=== PATIENT | male | born 1975 | race Caucasian/White ===

== ENCOUNTER 2020-02-02 12:40 | Outpatient (CLI) | payer BC ==
--- NOTE | 2020-02-02 16:13 | MRI ---
Exam: Cervical spine MRI with and without contrast HISTORY: Numbness from iliac crest down to the feet times many months. Full muscle capacity. Previous cervical fusion Comparison: None FINDINGS: Anterior fusion at C6-C7 with associated metallic susceptibly artifact. Cervical spine vert ebral body heights are maintained. No fracture. No significant STIR hyperintensity to suggest vertebral body edema or ligamentous injury. Appropriate T1 marrow signal intensity of the cervical vertebra. Postcontrast images do not demonstra te any abnormal enhancement of the vertebral bodies Visualized brain parenchyma, cervical medullary junction, cervical cord and the upper thoracic cord a re normal size and signal intensity. Postcontrast images do not demonstrate any abnormal enhancement. Spondylolisthesis: 3.8 mm of retrolisthesis of C6 upon C7 C2-C3: Central disc herniation abuts the thecal sac. Subarachnoid space is maintained. No significant central canal stenosis or significant neural foraminal narrowing C3-C4: Broad-based discussed by complex with a small central disc herniation does efface the midline subarachnoid space. Minimal contact upon the cervical cord without cord signal abnormality. Mild central canal stenosis. Moderate to severe right and mild left neural foraminal narrowing. C4-C5: Central disc herniation deforms the thecal sac. There is mass effect upon the cervical cord, w ithout cord signal abnormality. Postcontrast images demonstrate enhancement of the adjacent dura as well as enhancement along the herniated disc suggesting acute process. Moderate central canal stenosi s. Moderate to severe right and [id number] left neural foraminal narrowing due to uncovertebral hypertrophy C5-C6: Broad-based discussed by complex effaces the subarachnoid space. Moderate central canal stenos is. Moderate to severe bilateral neural foraminal narrowing C6-C7: Broad-based osteophyte ridge without significant central canal stenosis or significant neural foraminal narrowing C7-T1: Broad-based disc bulge abuts the thecal sac. Subarachnoid space is maintained. No significant central canal stenosis. Bilaterally, neural foramina are patent. IMPRESSION: 1. Cervical fusion from C6 through C7 2. No abnormal enhancement with regards to the cervical cord 3. Acute disc herniation at C4-C5. Moderate central canal stenosis. 4. Moderate central canal stenosis at C5-C6 due to degenerative change. 5. Varying degrees of neural foraminal stenosis as detailed above. Transcribed Date/Time: 02/02/2020 4:24 PM
--- NOTE | 2020-02-02 16:13 | MRI ---
MR the lumbar spine with and without contrast INDICATION: History of numbness from the iliac crest down both lower extremities COMPARISON: CT lumbar spine dated January 29, 2020 TECHNIQUE: Multiplanar multisequence MR images were obtained of lumbar spine with and without IV cont rast. Contrast: 19 cc of MultiHance. FINDINGS: Bone marrow: Normal. Distal spinal cord and conus: Normal. Conus is seen to terminate at the L1 level. Visualized retroperitoneum and paraspinal soft tissues: Normal. No lymphadenopathy demonstrated. Vertebral levels: L5-S1: There is mild facet joint degenerative change. There is a left paracentral annular fissure natasha suring 7.5 mm. There is no appreciable central canal or neural foraminal narrowing. L4-5: There is a mild broad-based bulge with mild facet joint degenerative change but no appreciable central canal or neural foraminal narrowing. L3-4: There is a mild broad-based bulge with mild facet joint degenerative change. There are bilatera l pars defects at L3. There is mild neural foraminal narrowing bilaterally. L2-3: No appreciable central canal or neuroforaminal narrowing. L1-L2: No appreciable central canal or neuroforaminal narrowing. T12-L1: There is a left paracentral protrusion without appreciable central canal or neural foraminal narrowing. Postcontrast series: No abnormal enhancement demonstrated. IMPRESSION: 1. Mild spondylosis of the lumbar spine. 2. 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 There is mild bilateral neural foraminal narrowing at L3-4. 3. Left paracentral annular fissure at L5-S1. 4. Left paracentral disc protrusion at T12-L1.
--- NOTE | 2020-02-02 16:21 | MRI ---
Exam: Thoracic spine MRI with and without contrast HISTORY: Numb from the iliac crest down to his feet times months. Previous cervical fusion. FINDINGS: Appropriate T1 marrow signal intensity of the thoracic vertebra. Thoracic spine vertebral body height is maintained. No fracture. No significant STIR hyperintensity to suggest vertebral body edema or ligamentous injury. Postcontrast images do not demonstrate any abnormal enhancement with regards to the vertebral bodies There is appropriate signal intensity of the mediastinum. Dependent atelectatic changes the lung pare nchyma. Appropriate signal intensity of the solid organs. The thoracic cord has a normal size and signal intensity. No cord malacia. No cord expansion. No cord gliosis. Conus medullaris terminates at the L1 level. T7-T8: Small right paracentral disc herniation. Mild deformity the right hemicord, without cord signa l abnormality. T9-T10: Small right paracentral disc herniation. Minimal deformity the right hemicord. Mild central c anal stenosis. No cord signal abnormality. T11-T12: Broad-based disc bulge results in mild central canal stenosis T12-L1 Central/left paracentral and foraminal disc herniation is noted. There is subtle enhancement. Herniation may be acute. There is mild narrowing of the central spinal canal and left neural foramen due to disc material. IMPRESSION: Degenerative changes of the thoracic spine as described above. No cord signal abnormality . Transcribed Date/Time: 02/02/2020 4:27 PM
== END 2020-02-02 12:41 | disposition home or self-care (01) ==
LOC: SCSMRI 12:40
PROVIDERS: ATTEND Nurse Practitioner Acute Care
DX: G95.9 Disease of spinal cord, unspecified (principal); M47.814 Spondylosis without myelopathy or radiculopathy, thoracic region; M50.221 Other cervical disc displacement at C4-C5 level; M47.812 Spondylosis without myelopathy or radiculopathy, cervical region; M48.02 Spinal stenosis, cervical region; M47.816 Spondylosis without myelopathy or radiculopathy, lumbar region; M51.25 Other intervertebral disc displacement, thoracolumbar region; M43.06 Spondylolysis, lumbar region; Z98.1 Arthrodesis status
CPT/HCPCS: 72156; 72157; 72158

== ENCOUNTER 2020-07-04 12:55 | Outpatient (CLI) | payer BC | END 2020-07-04 12:56 | disposition home or self-care (01) | LOC: ULT 12:55 | PROVIDERS: ATTEND Internal Medicine | DX: I63.9 Cerebral infarction, unspecified (principal); I08.1 Rheumatic disorders of both mitral and tricuspid valves | CPT/HCPCS: 93306 ==

== ENCOUNTER 2020-08-23 07:48 | Outpatient (CLI) | payer BC ==
[2020-08-23 09:45] LABS: #Basophils 0.1 10x3/uL (0.0-0.2); #Eosinphils 0.1 10x3/uL (0.0-0.5); #Monocytes 0.7 10x3/uL (0.0-1.1); #Neutrophils 3.6 10x3/uL (1.5-8.4); %Basophils 1.2 % (0.0-2.0); %Eosinophils 2.4 % (0.0-6.0); %Lymphocytes 23.8 % (18.0-47.0); %Monocytes 11.6 % (0.0-10.0); %Neutrophils 60.8 % (40.0-75.0); Mean Corpuscular HGB CONC 33.3 G/DL (32.0-36.0); Mean Corpuscular Hemoglobin 35.9 PG (27.0-33.0); Mean Corpuscular Volume 107.9 fl (80.0-100.0); Mean Platelet Volume 9.6 fl (7.4-10.4); Platelet Count 240 10x3/uL (130-400); RBC Distribution Width 13.4 % (11.5-14.5); White Blood Cell (WBC) Count 5.9 10x3/uL (4.5-11.0)
[2020-08-23 09:58] LABS: Macrocytosis SLIGHT = 6-15 cells (100X) (0-5/hpf)
[2020-08-23 09:59] LABS: Platelet Morphology Comment Appears Adequate; Stomatocytes MODERATE= 6-15 cells (100X) (0-1/hpf)
[2020-08-23 10:02] LABS: Anion Gap 16 mmol/L (10-20); BUN (Urea Nitrogen) 5 mg/dL (8.9-20.6); Calc. Creatinine Clearance 0 mL/min (70-130); Calcium 9.4 mg/dL (7.8-10.44); Carbon Dioxide 24 mmol/L (22-29); Chloride 104 mmol/L (98-107); Glucose 88 mg/dL (70-105); Potassium 4.4 mmol/L (3.5-5.1); Sodium 140 mmol/L (136-145)
[2020-08-24 07:11] LABS: SARS-CoV-2 MS2 Positive; SARS-CoV-2 N Gene Negative; SARS-CoV-2 S Gene Positive; SARS-CoV-2 by NAA DETECTED (NotDetected); SARS-CoV-2 orf1ab Positive
== END 2020-08-23 07:49 | disposition home or self-care (01) ==
LOC: LABBT 07:48
PROVIDERS: ATTEND Internal Medicine Cardiovascular Disease
DX: U07.1 COVID-19 (principal); Z01.818 Encounter for other preprocedural examination; I63.9 Cerebral infarction, unspecified; Q21.1 Atrial septal defect
CPT/HCPCS: 80048; 85025; 87635; U0003

== ENCOUNTER 2020-08-26 06:18 | Day surgery (SDC) | payer BC ==
[2020-08-24 12:32] VITALS: BMI 28.5
[2020-08-26] MEDS ORDERED: PROPOFOL 40 ML ONE (07:21)
[2020-08-26] MEDS ORDERED: PROPOFOL 20 ML ONE (07:59)
[2020-08-26] MEDS ORDERED: Lidocaine 1% PF 5 ML VIAL ONE ×2 (07:59→09:03)
--- NOTE | 2020-08-29 06:48 | DIS ---
DATE OF ADMISSION: 08/26/2020 DATE OF DISCHARGE: 08/26/2020 Date of procedure as an outpatient was 08/26/2020. He was seen in the outpatient facility to undergo a transesophageal echocardiogram with agitated bubble study. PRELIMINARY DIAGNOSIS: Patent foramen ovale, which was noted by a transthoracic echocardiogram in the office using a bubble study. OTHER DIAGNOSIS: Include status post CVA x2. DISCHARGE DIAGNOSIS: No evidence of patent foramen ovale or atrial septal defect or any structural cardiac abnormalities that could be noted by the transesophageal echocardiogram or agitated bubble study. DISCHARGE MEDICATIONS: Will include; 1. Aspirin 160 mg a day. 2. Plavix 75 mg. 3. Protonix 40 mg q.a.m. 4. He also takes bupropion 300 mg q.a.m. I will see him back in the office in the next couple of weeks. 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 He underwent a bubble study in the office, which showed what appeared to be evidence of a patent foramen ovale. He was advised to undergo a transesophageal echocardiogram for better evaluation. He was taken to the recovery area today where he underwent the procedures and after three attempts of agitated saline injections which appeared to be good studies, we did not see any crossover to the left side, even after pressure in the hepatic area and also after the patient had a coughing episode during the ROSA. It is unclear whether or not the patient has some other structural abnormality that cannot be appreciated. We will need to seek further evaluation either by an MRI for further evaluation to determine if this may be some type of connection higher up in the pulmonary system, which was not appreciated on this study. He may need to also undergo if we do not find any structural abnormalities to account for the CVAs. He may need to undergo a LINQ or implantable loop recorder to rule out evidence of some type of intermittent arrhythmias that may have caused this such as atrial fibrillation. Otherwise, the patient did well. He will be ready for discharge. We will continue his present medications at this time. Job ID: [id number]
--- NOTE | 2020-08-30 14:45 | ECHO ---
INDICATION FOR PROCEDURE: 45-year-old patient who is status post CVA x2, was seen in the office, had a transthoracic echocardiogram performed with bubble study. It appeared that the patient had a PFO. He was advised to undergo a transesophageal echocardiogram for better evaluation. He was taken to the recovery area where he underwent short-acting propofol. The transesophageal probe was easily passed down the distal esophagus. We did three attempts at the agitated saline bubble study. IMPRESSIONS: Are as follows: 1. Normal left ventricular systolic function. Ejection fraction was estimated 55-60%. 2. Normal chamber dimensions. 3. No evidence of left atrial or left atrial appendage thrombus. 4. Trivial mitral and tricuspid valve regurgitation. 5. No evidence of a patent foramen ovale or atrial septal defect. The bubble study did not indicate any crossover of the bubbles even with pressure on the hepatic area as well as coughing. There did not appear to be any crossover of bubbles after three attempts. IMPRESSION: Normal echocardiogram with no evidence of patent foramen ovale, atrial septal defect, left atrial appendage thrombus, or any other abnormalities. Job ID: [id number]
== END 2020-08-26 09:16 | disposition home or self-care (01) ==
LOC: CCL 06:18
PROVIDERS: ATTEND Internal Medicine Cardiovascular Disease
PROC: B24BZZ4 Ultrasonography of Heart with Aorta, Transesophageal (ICD-10-PCS; principal; 2020-08-26)
DX: Q21.1 Atrial septal defect (principal); I69.30 Unspecified sequelae of cerebral infarction; F17.290 Nicotine dependence, other tobacco product, uncomplicated; Z79.02 Long term (current) use of antithrombotics/antiplatelets; Z79.82 Long term (current) use of aspirin; Z79.899 Other long term (current) drug therapy; Z88.0 Allergy status to penicillin; Z88.2 Allergy status to sulfonamides; Z98.1 Arthrodesis status
CPT/HCPCS: 93312; J2704

== ENCOUNTER 2021-08-18 16:18 | Inpatient (IN) | payer BC ==
[2021-08-18 17:09] LABS: #Basophils 0.1 thou/uL (0.0-0.2); #Lymphocytes 2.3 thou/uL (1.20-3.40); #Monocytes 0.7 thou/uL (0.11-0.59); #Neutrophils 3.4 thou/uL (1.40-6.50); %Basophils 1.5 % (0.0-1.0); %Eosinophils 0.1 % (0.0-10.0); %Lymphocytes 35.1 % (21.0-51.0); %Monocytes 10.8 % (0.0-10.0); %Neutrophils 52.4 % (42.0-75.0); Hemoglobin 13.9 g/dL (14.0-18.0); Mean Corpuscular HGB CONC 35.2 g/dL (32.0-36.0); Mean Corpuscular Hemoglobin 40.8 pg (27.0-31.0); Mean Platelet Volume 6.3 fL (7.4-10.4); Platelet Count 197 thou/uL (130-400); RBC Distribution Width 17.2 % (11.5-14.5); Red Blood Cell (RBC) Count 3.41 mill/uL (4.70-6.10); White Blood Cell (WBC) Count 6.5 thou/uL (4.8-10.8)
[2021-08-18 17:22] LABS: Anisocytosis SLIGHT = 6-15 cells (100X) (0-5/hpf); MDiff Complete? YES; Macrocytosis SLIGHT = 6-15 cells (100X) (0-5/hpf); Platelet Morphology Comment Appears Adequate
[2021-08-18 17:29] LABS: ALT (SGPT) 78 U/L (8-55); AST (SGOT) 152 U/L (5-34); Acetaminophen Less than 6.0 mcg/mL (10.0-30.0); Albumin 2.8 g/dL (3.5-5.0); Alkaline Phosphatase 216 U/L (40-110); Anion Gap 11 mmol/L (10-20); BUN (Urea Nitrogen) 4 mg/dL (8.9-20.6); Bilirubin, Total 1.8 mg/dL (0.2-1.2); Calc. Creatinine Clearance 0 mL/min (70-130); Calcium 8.3 mg/dL (7.8-10.44); Carbon Dioxide 31 mmol/L (22-29); Chloride 105 mmol/L (98-107); Globulin 3.7 g/dL (2.4-3.5); Glucose 124 mg/dL (70-105); Protein, Total 6.5 g/dL (6.0-8.3); Salicylate Less than 8.0 mg/dL (15.0-30.0); Sodium 144 mmol/L (136-145)
[2021-08-18 17:48] LABS: Alcohol 444 mg/dL (Less than 10)
[2021-08-18] MEDS ORDERED: Thiamine HCl 200 MG/2 ML VIAL SLOW IVP SCH (18:15)
[2021-08-18] MEDS ORDERED: Folic Acid 1 MG, Multivitamins, Adult 10 ML in Dextrose 5 %-0.45 % NaCl 1,000 ML IV SCH (18:30)
[2021-08-18] MEDS ORDERED: Lorazepam 2 MG/ML VIAL ONE (18:40)
[2021-08-18 19:36] LABS: SARS-CoV-2 NAA Rapid Test Not Detected (NotDetected)
[2021-08-18] MEDS ORDERED: Ondansetron ODT 4 MG TAB PO PRN ×2 (20:05→22:35)
[2021-08-18] MEDS ORDERED: Lorazepam 2 MG/ML VIAL SLOW IVP PRN (20:05)
[2021-08-18] MEDS ORDERED: Electrolyte Replacement Protocol 1 EACH FS SCH (20:15)
[2021-08-18 20:35] LABS: Hemoglobin 14.8 g/dL (14.0-18.0); Mean Corpuscular HGB CONC 34.7 g/dL (32.0-36.0); Mean Platelet Volume 6.5 fL (7.4-10.4); Platelet Count 198 thou/uL (130-400); RBC Distribution Width 17.1 % (11.5-14.5); White Blood Cell (WBC) Count 6.1 thou/uL (4.8-10.8)
[2021-08-18] MEDS: Lorazepam 1 MG TAB PO SCH (20:41)
[2021-08-18 20:56] LABS: ALT (SGPT) 79 U/L (8-55); AST (SGOT) 154 U/L (5-34); Albumin 2.9 g/dL (3.5-5.0); Alkaline Phosphatase 223 U/L (40-110); Anion Gap 12 mmol/L (10-20); BUN (Urea Nitrogen) Less than 4 mg/dL (8.9-20.6); Bilirubin, Direct 1.1 mg/dL (0.1-0.3); Bilirubin, Total 1.8 mg/dL (0.2-1.2); Calc. Creatinine Clearance 0 mL/min (70-130); Calcium 7.9 mg/dL (7.8-10.44); Carbon Dioxide 31 mmol/L (22-29); Chloride 103 mmol/L (98-107); Globulin 3.9 g/dL (2.4-3.5); Glucose 124 mg/dL (70-105); Magnesium 1.6 mg/dL (1.6-2.6); Phosphorus 2.7 mg/dL (2.3-4.7); Protein, Total 6.8 g/dL (6.0-8.3); Sodium 143 mmol/L (136-145)
[2021-08-18 21:00] LABS: Band 4 % (5-11); Lymphocytes 15 % (21-51); MDiff Complete? YES; Monocytes 15 % (0-10); Neutrophil 66 % (42-75); Nucleated RBC 1 % (0); Platelet Morphology Comment Appears Adequate; RBC Morphology Normal
[2021-08-18] MEDS ORDERED: Folic Acid 1 MG TAB PO SCH (21:00)
[2021-08-18] MEDS ORDERED: Multivit, Therapeutic 1 TAB PO SCH (21:00)
[2021-08-18] MEDS ORDERED: Potassium Chloride 20 MEQ TAB PO SCH (21:00)
[2021-08-18 21:02] LABS: Potassium 2.9 mmol/L (3.5-5.1)
[2021-08-18] MEDS: Lorazepam 1 MG TAB PO PRN (21:03)
[2021-08-18 22:21] VITALS: BMI 27.4
[2021-08-18 22:24] LABS: Amphetamine Not Detected (NotDetected); Barbiturates Screen Not Detected (NotDetected); Benzodiazepine Screen Not Detected (NotDetected); Cocaine Metabolite Screen Not Detected (NotDetected); Methadone Not Detected (NotDetected); Methamphetamine Not Detected (NotDetected); Opiate Screen Not Detected (NotDetected); Oxycodone Screen Not Detected (NotDetected); Phencyclidine (PCP) Not Detected (NotDetected); THC/Cannabinoid Screen Not Detected (NotDetected); Tricyclic Screen Not Detected (NotDetected)
[2021-08-18] MEDS ORDERED: Senokot S 8.6-50 MG TAB PO PRN (22:35)
[2021-08-18] MEDS ORDERED: Bisacodyl 5 MG TAB PO PRN (22:35)
[2021-08-18] MEDS ORDERED: Calcium Carbonate 500 MG ChewTAB PO PRN (22:35)
[2021-08-18] MEDS ORDERED: hydrALAZINE 20 MG/ML VIAL SLOW IVP PRN (22:40)
[2021-08-19] MEDS: Lorazepam 1 MG TAB PO PRN (00:10)
[2021-08-19] MEDS ORDERED: Potassium Chloride 20 MEQ TAB PO SCH ×4 (01:00→15:00)
[2021-08-19] MEDS ORDERED: Magnesium 2 GM/50 ML 2 GM in Premix Bag 1 BAG IVPB SCH (01:15)
[2021-08-19] MEDS: Sodium Chloride 0.9% 1,000 ML IV SCH ×3 (01:49→16:49)
[2021-08-19] MEDS ORDERED: Potassium Chloride 40 MEQ in Sodium Chloride 0.9% 250 ML 250 ML IVPB SCH (02:30)
[2021-08-19] MEDS: Potassium Chloride 10 MEQ in Premix Bag 1 BAG IVPB SCH ×11 (03:24→15:57)
[2021-08-19] MEDS: Lorazepam 1 MG TAB PO SCH ×4 (03:26→20:13)
[2021-08-19 06:41] LABS: #Lymphocytes 1.6 thou/uL (1.20-3.40); #Monocytes 0.5 thou/uL (0.11-0.59); #Neutrophils 1.4 thou/uL (1.40-6.50); %Basophils 1.1 % (0.0-1.0); %Eosinophils 0.1 % (0.0-10.0); %Lymphocytes 46.2 % (21.0-51.0); %Neutrophils 39.6 % (42.0-75.0); Hemoglobin 12.5 g/dL (14.0-18.0); Mean Corpuscular HGB CONC 35.1 g/dL (32.0-36.0); Mean Corpuscular Hemoglobin 40.7 pg (27.0-31.0); Mean Platelet Volume 6.5 fL (7.4-10.4); Platelet Count 137 thou/uL (130-400); RBC Distribution Width 17.1 % (11.5-14.5); Red Blood Cell (RBC) Count 3.07 mill/uL (4.70-6.10); White Blood Cell (WBC) Count 3.5 thou/uL (4.8-10.8)
[2021-08-19 07:03] LABS: ALT (SGPT) 60 U/L (8-55); AST (SGOT) 114 U/L (5-34); Albumin 2.2 g/dL (3.5-5.0); Alkaline Phosphatase 177 U/L (40-110); Anion Gap 11 mmol/L (10-20); BUN (Urea Nitrogen) Less than 4 mg/dL (8.9-20.6); Bilirubin, Total 1.7 mg/dL (0.2-1.2); Calc. Creatinine Clearance 194 mL/min (70-130); Calcium 7.6 mg/dL (7.8-10.44); Carbon Dioxide 28 mmol/L (22-29); Chloride 104 mmol/L (98-107); Globulin 3.1 g/dL (2.4-3.5); Glucose 77 mg/dL (70-105); Potassium 3.1 mmol/L (3.5-5.1); Protein, Total 5.3 g/dL (6.0-8.3); Sodium 140 mmol/L (136-145)
[2021-08-19 07:23] LABS: HBCM Index 0.08 S/CO (0-0.79); HBSAg Index 0.27 S/CO (0-0.99); Hep A IgM AB Non-Reactive (NonReactive); Hep A IgM S/CO 0.14 S/CO (0-0.79); Hep B Surf Ag Non-Reactive S/CO (NonReactive); Hep C IgG Ab Non-Reactive (NonReactive); Hepatitis B Core IgM Abs Non-Reactive (NonReactive)
[2021-08-19] MEDS ORDERED: Potassium Chloride 20 MEQ in Premix Bag 1 BAG IVPB SCH (08:15)
[2021-08-19] MEDS: Folic Acid 1 MG TAB PO SCH (08:34)
[2021-08-19] MEDS: Multivit, Therapeutic 1 TAB PO SCH (08:35)
[2021-08-19 11:59] LABS: Syphilis Antibody Nonreactive (Nonreactive); Syphilis Antibody Index 0.06 S/CO (<1.00 Non-Reactive)
[2021-08-19 12:07] LABS: Anion Gap 12 mmol/L (10-20); BUN (Urea Nitrogen) Less than 4 mg/dL (8.9-20.6); Calc. Creatinine Clearance 194 mL/min (70-130); Calcium 7.7 mg/dL (7.8-10.44); Carbon Dioxide 26 mmol/L (22-29); Chloride 103 mmol/L (98-107); Glucose 77 mg/dL (70-105); Potassium 3.4 mmol/L (3.5-5.1); Sodium 138 mmol/L (136-145)
[2021-08-19] MEDS ORDERED: Clopidogrel Bisulfate 75 MG TAB PO SCH (15:15)
[2021-08-19 16:06] LABS: Cardiac Risk 3.8 (Less than 4.5)
[2021-08-19] MEDS ORDERED: Lorazepam 1 MG TAB PO PRN (20:06)
[2021-08-19] MEDS ORDERED: Acetaminophen 325 MG TAB PO PRN (20:31)
[2021-08-20] MEDS: Lorazepam 1 MG TAB PO SCH ×4 (03:25→20:51)
[2021-08-20] MEDS: Sodium Chloride 0.9% 1,000 ML IV SCH ×2 (03:26→13:26)
[2021-08-20] MEDS: Clopidogrel Bisulfate 75 MG TAB PO SCH ×2 (09:53→09:57)
[2021-08-20] MEDS: Bupropion 150 MG XL TAB PO SCH (09:56)
[2021-08-20] MEDS: Multivit, Therapeutic 1 TAB PO SCH (10:01)
[2021-08-20] MEDS: Aspirin 81 mg Enteric Coated Tablet PO SCH (10:01)
[2021-08-20] MEDS: Folic Acid 1 MG TAB PO SCH (10:01)
[2021-08-20 11:05] LABS: ALT (SGPT) 66 U/L (8-55); AST (SGOT) 123 U/L (5-34); Albumin 2.8 g/dL (3.5-5.0); Alkaline Phosphatase 234 U/L (40-110); Anion Gap 13 mmol/L (10-20); BUN (Urea Nitrogen) Less than 4 mg/dL (8.9-20.6); Bilirubin, Total 4.4 mg/dL (0.2-1.2); Calc. Creatinine Clearance 171 mL/min (70-130); Calcium 8.6 mg/dL (7.8-10.44); Carbon Dioxide 23 mmol/L (22-29); Chloride 100 mmol/L (98-107); Globulin 3.9 g/dL (2.4-3.5); Glucose 85 mg/dL (70-105); Potassium 4.2 mmol/L (3.5-5.1); Protein, Total 6.7 g/dL (6.0-8.3); Sodium 132 mmol/L (136-145)
[2021-08-20 15:58] LABS: HBCM Index 0.08 S/CO (0-0.79); HBSAg Index 0.28 S/CO (0-0.99); Hep A IgM AB Non-Reactive (NonReactive); Hep A IgM S/CO 0.15 S/CO (0-0.79); Hep B Surf Ag Non-Reactive S/CO (NonReactive); Hep C IgG Ab Non-Reactive (NonReactive); Hep C Index 0.74 S/CO (0-0.79); Hepatitis B Core IgM Abs Non-Reactive (NonReactive)
[2021-08-20] MEDS ORDERED: Thiamine HCl 200 MG/2 ML VIAL SLOW IVP SCH (17:00)
[2021-08-20] MEDS: Folic Acid 1 MG, Multivitamins, Adult 10 ML in Dextrose 5 %-0.45 % NaCl 1,000 ML IV SCH (18:09)
[2021-08-20] MEDS ORDERED: Lorazepam 1 MG TAB PO PRN (20:06)
[2021-08-20] MEDS: Lorazepam 0.5 MG TAB PO SCH (20:52)
[2021-08-21] MEDS: Lorazepam 0.5 MG TAB PO SCH ×4 (03:04→21:00)
[2021-08-21 05:44] LABS: ALT (SGPT) 54 U/L (8-55); AST (SGOT) 86 U/L (5-34); Albumin 2.7 g/dL (3.5-5.0); Alkaline Phosphatase 204 U/L (40-110); Anion Gap 9 mmol/L (10-20); BUN (Urea Nitrogen) Less than 4 mg/dL (8.9-20.6); Bilirubin, Total 3.8 mg/dL (0.2-1.2); Calc. Creatinine Clearance 153 mL/min (70-130); Calcium 8.8 mg/dL (7.8-10.44); Carbon Dioxide 27 mmol/L (22-29); Chloride 99 mmol/L (98-107); Globulin 3.8 g/dL (2.4-3.5); Glucose 98 mg/dL (70-105); Potassium 3.4 mmol/L (3.5-5.1); Protein, Total 6.5 g/dL (6.0-8.3); Sodium 132 mmol/L (136-145)
[2021-08-21] MEDS ORDERED: Potassium Chloride 20 MEQ TAB PO SCH (06:30)
[2021-08-21] MEDS ORDERED: Electrolyte Replacement Protocol 1 EACH FS ONE (08:17)
[2021-08-21] MEDS ORDERED: Electrolyte Replacement Protocol FS PRN (08:30)
[2021-08-21] MEDS: Clopidogrel Bisulfate 75 MG TAB PO SCH (08:54)
[2021-08-21] MEDS: Aspirin 81 mg Enteric Coated Tablet PO SCH (08:54)
[2021-08-21] MEDS: Bupropion 150 MG XL TAB PO SCH (08:54)
[2021-08-21] MEDS ORDERED: FLU VACC QS2021-22(6MOS UP)/PF 60 MCG/0.5 ML SYRINGE IM ONE (09:00)
[2021-08-21] MEDS: Folic Acid 1 MG, Multivitamins, Adult 10 ML in Dextrose 5 %-0.45 % NaCl 1,000 ML IV SCH (17:02)
[2021-08-21] MEDS ORDERED: Lorazepam 0.5 MG TAB PO PRN (20:06)
[2021-08-21] MEDS ORDERED: Thiamine 100 MG TAB PO SCH (21:00)
[2021-08-22] MEDS: Bupropion 150 MG XL TAB PO SCH (08:43)
[2021-08-22] MEDS: Clopidogrel Bisulfate 75 MG TAB PO SCH (08:43)
[2021-08-22] MEDS: Aspirin 81 mg Enteric Coated Tablet PO SCH (08:43)
[2021-08-22 10:06] LABS: ALT (SGPT) 68 U/L (8-55); AST (SGOT) 154 U/L (5-34); Albumin 2.8 g/dL (3.5-5.0); Alkaline Phosphatase 191 U/L (40-110); Anion Gap 11 mmol/L (10-20); BUN (Urea Nitrogen) 4 mg/dL (8.9-20.6); Bilirubin, Total 3.5 mg/dL (0.2-1.2); Calc. Creatinine Clearance 151 mL/min (70-130); Calcium 8.9 mg/dL (7.8-10.44); Carbon Dioxide 23 mmol/L (22-29); Chloride 102 mmol/L (98-107); Globulin 3.7 g/dL (2.4-3.5); Glucose 86 mg/dL (70-105); Magnesium 1.3 mg/dL (1.6-2.6); Phosphorus 3.3 mg/dL (2.3-4.7); Potassium 3.4 mmol/L (3.5-5.1); Protein, Total 6.5 g/dL (6.0-8.3); Sodium 133 mmol/L (136-145)
[2021-08-22 10:12] LABS: INR-International Normal Ratio 1.1; Prothrombin Time 14.2 sec (12.0-14.7)
[2021-08-22] MEDS ORDERED: Potassium Chloride 20 MEQ TAB PO SCH (10:15)
[2021-08-22] MEDS ORDERED: Magnesium Sulfate 4 GM in Sodium Chloride 0.9% 250 ML 250 ML IVPB SCH (10:45)
[2021-08-22 15:43] VITALS: BP 120/90; TEMP 97.3
== END 2021-08-22 15:50 | disposition home or self-care (01) | DRG 917 ==
LOC: ERS 16:18 → T4-A 18:18 → 2NO 08-19 17:12 → T4-A 08-21 18:21
PROVIDERS: ADMIT Internal Medicine; ATTEND Internal Medicine
DX: T51.91XA Toxic effect of unspecified alcohol, accidental (unintentional), initial encounter (principal); G92.8 Other toxic encephalopathy; E87.1 Hypo-osmolality and hyponatremia; Z20.822 Contact with and (suspected) exposure to COVID-19; K70.10 Alcoholic hepatitis without ascites; E87.6 Hypokalemia; F10.129 Alcohol abuse with intoxication, unspecified; F32.A Depression, unspecified; F41.9 Anxiety disorder, unspecified; D64.9 Anemia, unspecified; Y90.8 Blood alcohol level of 240 mg/100 ml or more; E83.42 Hypomagnesemia; Z88.0 Allergy status to penicillin; Z98.1 Arthrodesis status; Z88.2 Allergy status to sulfonamides; Z79.82 Long term (current) use of aspirin; Z79.02 Long term (current) use of antithrombotics/antiplatelets; Z86.73 Personal history of transient ischemic attack (TIA), and cerebral infarction without residual deficits; Z99.3 Dependence on wheelchair
CPT/HCPCS: 36415; 76705; 80053; 80061; 80074; 80306; 80307; 82140; 82248; 83735; 84100; 84443; 85025; 85610; 85730; 86780; 93005; J2060; J3411; J3475; J3480; J7042; J7050; U0002

== ENCOUNTER 2021-10-19 11:25 | Inpatient (IN) | payer BC ==
[2021-10-19 12:18] LABS: Hemoglobin 14.1 g/dL (14.0-18.0); Mean Corpuscular Hemoglobin 42.5 pg (27.0-31.0); Mean Platelet Volume 7.6 fL (7.4-10.4); Platelet Count 285 thou/uL (130-400); RBC Distribution Width 18.5 % (11.5-14.5); Red Blood Cell (RBC) Count 3.31 mill/uL (4.70-6.10); White Blood Cell (WBC) Count 20.2 thou/uL (4.8-10.8)
[2021-10-19 12:26] LABS: INR-International Normal Ratio 1.4; PTT 39.9 sec (22.9-36.1); Prothrombin Time 17.6 sec (12.0-14.7)
[2021-10-19 12:34] LABS: Acetaminophen Less than 6.0 mcg/mL (10.0-30.0); Alcohol Less than 10 mg/dL (Less than 10); Salicylate Less than 8.0 mg/dL (15.0-30.0)
[2021-10-19 12:35] LABS: ALT (SGPT) 117 U/L (8-55); AST (SGOT) 210 U/L (5-34); Albumin 2.4 g/dL (3.5-5.0); Alkaline Phosphatase 345 U/L (40-110); Anion Gap 17 mmol/L (10-20); BUN (Urea Nitrogen) 7 mg/dL (8.9-20.6); Bilirubin, Total 11.1 mg/dL (0.2-1.2); Calc. Creatinine Clearance 0 mL/min (70-130); Carbon Dioxide 27 mmol/L (22-29); Chloride 86 mmol/L (98-107); Globulin 4.9 g/dL (2.4-3.5); Glucose 139 mg/dL (70-105); Lipase 13 U/L (8-78); Protein, Total 7.3 g/dL (6.0-8.3); Sodium 127 mmol/L (136-145)
[2021-10-19 12:39] LABS: Potassium 2.7 mmol/L (3.5-5.1)
[2021-10-19 12:41] LABS: Band 16 % (5-11); Eosinophils 1 % (0-10); Lymphocytes 9 % (21-51); MDiff Complete? YES; Macrocytosis MARKED = >30 cells (100X) (0-5/hpf); Monocytes 3 % (0-10); Neutrophil 71 % (42-75); Nucleated RBC 1 % (0); Platelet Morphology Comment Appears Adequate; Polychromasia MODERATE = 3-4 cells (100X) (0-2/hpf); Reflex for Review?? YES; Stomatocytes MODERATE= 6-15 cells (100X) (0-1/hpf)
[2021-10-19] MEDS ORDERED: Potassium Chloride 20 MEQ TAB ONE (12:41)
[2021-10-19 12:51] LABS: HBSAg Index 0.26 S/CO (0-0.99); Hep B Surf Ag Non-Reactive S/CO (NonReactive)
[2021-10-19] MEDS ORDERED: Potassium Chloride 20 MEQ/100 ML PREMIX BAG ONE (12:52)
[2021-10-19 12:54] LABS: Hep A IgM AB Non-Reactive (NonReactive); Hep A IgM S/CO 0.22 S/CO (0-0.79); Hepatitis B Core IgM Abs Non-Reactive (NonReactive)
[2021-10-19] MEDS ORDERED: cefTRIAXone\\ROCEPHIN 2 GM VIAL ONE (13:06)
[2021-10-19 13:07] LABS: Magnesium 2.1 mg/dL (1.6-2.6)
[2021-10-19] MEDS ORDERED: VANCOMYCIN 2 GRAM/400 ML BAG 2 GM in Premix Bag 1 BAG IVPB SCH (13:15)
[2021-10-19] MEDS ORDERED: Potassium Chloride 20 MEQ TAB PO SCH (14:45)
[2021-10-19 14:49] LABS: Hep C IgG Ab Non-Reactive (NonReactive); Hep C Index 0.52 S/CO (0-0.79)
[2021-10-19 15:24] LABS: Troponin I Less than 0.010 ng/mL (< 0.028)
[2021-10-19] MEDS ORDERED: Ondansetron PF 4 MG/2 ML Vial IVP PRN (15:59)
[2021-10-19] MEDS ORDERED: Vancomycin 1 GM in Premix Bag 1 BAG IVPB SCH (15:59)
[2021-10-19] MEDS ORDERED: Multivitamins, Adult 10 ML, Folic Acid 1 MG in Dextrose 5 %-0.45 % NaCl 1,000 ML IV SCH (15:59)
[2021-10-19] MEDS ORDERED: Thiamine HCl 200 MG/2 ML VIAL SLOW IVP SCH (16:30)
[2021-10-19 18:54] LABS: Troponin I Less than 0.010 ng/mL (< 0.028)
[2021-10-19] MEDS: Simethicone Chewable 80 MG TAB PO PRN (19:11)
[2021-10-19] MEDS: Albumin 25% 25 GM/100 ML BOT IVPB SCH (19:12)
[2021-10-19 20:58] LABS: SARS-CoV-2 PCR by NAA Not Detected (NotDetected)
[2021-10-20] MEDS ORDERED: Vancomycin 1.5 GRAM/300 ML BAG 1.5 GM in Premix Bag 1 BAG IVPB SCH (04:00)
[2021-10-20 05:10] LABS: ALT (SGPT) 81 U/L (8-55); AST (SGOT) 154 U/L (5-34); Alkaline Phosphatase 236 U/L (40-110); Anion Gap 11 mmol/L (10-20); BUN (Urea Nitrogen) 7 mg/dL (8.9-20.6); Bilirubin, Total 9.5 mg/dL (0.2-1.2); Calc. Creatinine Clearance 131 mL/min (70-130); Calcium 7.1 mg/dL (7.8-10.44); Carbon Dioxide 28 mmol/L (22-29); Chloride 90 mmol/L (98-107); Globulin 3.3 g/dL (2.4-3.5); Glucose 116 mg/dL (70-105); Potassium 2.8 mmol/L (3.5-5.1); Protein, Total 5.3 g/dL (6.0-8.3); Sodium 126 mmol/L (136-145)
[2021-10-20] MEDS ORDERED: Electrolyte Replacement Protocol 1 EACH FS PRN (05:45)
[2021-10-20] MEDS: Potassium Chloride 40 MEQ in Sodium Chloride 0.9% 250 ML 250 ML IVPB SCH ×4 (06:08→23:16)
[2021-10-20 06:36] LABS: #Lymphocytes 2.3 thou/uL (1.20-3.40); #Monocytes 2.1 thou/uL (0.11-0.59); #Neutrophils 11.2 thou/uL (1.40-6.50); %Basophils 0.3 % (0.0-1.0); %Eosinophils 0.1 % (0.0-10.0); %Lymphocytes 14.4 % (21.0-51.0); %Monocytes 13.5 % (0.0-10.0); %Neutrophils 71.8 % (42.0-75.0); Hemoglobin 10.8 g/dL (14.0-18.0); Mean Corpuscular HGB CONC 32.4 g/dL (32.0-36.0); Mean Corpuscular Hemoglobin 41.6 pg (27.0-31.0); Mean Platelet Volume 7.2 fL (7.4-10.4); Platelet Count 220 thou/uL (130-400); RBC Distribution Width 18.6 % (11.5-14.5); White Blood Cell (WBC) Count 15.7 thou/uL (4.8-10.8)
[2021-10-20 06:45] LABS: Magnesium 1.9 mg/dL (1.6-2.6)
[2021-10-20] MEDS ORDERED: Magnesium 2 GM/50 ML(in water) 2 GM in Premix Bag 1 BAG IVPB SCH (08:00)
[2021-10-20] MEDS: Thiamine 100 MG TAB PO SCH ×2 (11:14→11:16)
[2021-10-20] MEDS: Multivit, Therapeutic 1 TAB PO SCH (11:15)
[2021-10-20] MEDS: Enoxaparin Sodium 40 MG/0.4 ML SYRINGE SC SCH (11:15)
[2021-10-20] MEDS: Aspirin 81 mg Enteric Coated Tablet PO SCH (11:16)
[2021-10-20] MEDS: Folic Acid 1 MG TAB PO SCH (11:16)
[2021-10-20] MEDS ORDERED: Polyethylene Glycol 3350 17 GM Packet PO SCH (14:15)
[2021-10-20 15:22] LABS: Vancomycin, Trough 25.6 ug/mL
[2021-10-20 15:25] LABS: Bilirubin, Direct 8.2 mg/dL (0.1-0.3); Bilirubin, Total 11.4 mg/dL (0.2-1.2)
[2021-10-20] MEDS: Albumin 25% 25 GM/100 ML BOT IVPB SCH (17:20)
[2021-10-20] MEDS: cefTRIAXone\\ROCEPHIN 1 GM in Sodium Chloride 0.9% 100 ML IVPB SCH (18:54)
[2021-10-20] MEDS ORDERED: Albumin 25% 25 GM/100 ML BOT IVPB SCH (19:30)
[2021-10-20 20:38] LABS: RBC Count-Automated (BF) 119 /cu.mm; WBC/Nucleated-Auto (BF) 43 /cu.mm
[2021-10-20 20:43] LABS: BF Color Yellow; Body Fluid Source Ascites Body Fluid; Clarity Clear (Clear); Tube # EDTA
[2021-10-20 20:54] LABS: Cell Count Non Hematic 90 %; Lymphocytes 10 %
[2021-10-21] MEDS: Vancomycin 1 GM in Premix Bag 1 BAG IVPB SCH ×2 (03:11→17:02)
[2021-10-21] MEDS: Potassium Chloride 40 MEQ in Sodium Chloride 0.9% 250 ML 250 ML IVPB SCH ×2 (04:15→05:15)
[2021-10-21 05:00] LABS: ALT (SGPT) 76 U/L (8-55); AST (SGOT) 144 U/L (5-34); Albumin 2.7 g/dL (3.5-5.0); Alkaline Phosphatase 201 U/L (40-110); Anion Gap 12 mmol/L (10-20); BUN (Urea Nitrogen) 6 mg/dL (8.9-20.6); Bilirubin, Total 11.4 mg/dL (0.2-1.2); Calc. Creatinine Clearance 152 mL/min (70-130); Calcium 7.5 mg/dL (7.8-10.44); Carbon Dioxide 26 mmol/L (22-29); Chloride 92 mmol/L (98-107); Globulin 3.1 g/dL (2.4-3.5); Glucose 86 mg/dL (70-105); Magnesium 2.2 mg/dL (1.6-2.6); Potassium 4.6 mmol/L (3.5-5.1); Protein, Total 5.8 g/dL (6.0-8.3); Sodium 125 mmol/L (136-145)
[2021-10-21 05:42] LABS: #Basophils 0.1 thou/uL (0.0-0.2); #Lymphocytes 1.6 thou/uL (1.20-3.40); #Monocytes 1.9 thou/uL (0.11-0.59); %Basophils 0.3 % (0.0-1.0); %Lymphocytes 11.2 % (21.0-51.0); %Monocytes 13.1 % (0.0-10.0); %Neutrophils 75.3 % (42.0-75.0); Anisocytosis SLIGHT = 6-15 cells (100X) (0-5/hpf); Hemoglobin 10.8 g/dL (14.0-18.0); MDiff Complete? YES; Macrocytosis MARKED = >30 cells (100X) (0-5/hpf); Mean Corpuscular HGB CONC 31.8 g/dL (32.0-36.0); Mean Corpuscular Hemoglobin 41.6 pg (27.0-31.0); Mean Platelet Volume 7.5 fL (7.4-10.4); Platelet Count 192 thou/uL (130-400); Target Cells SLIGHT = 2-5 cells (100X) (0-1/hpf); White Blood Cell (WBC) Count 14.7 thou/uL (4.8-10.8)
[2021-10-21 08:25] LABS: Anion Gap 12 mmol/L (10-20); BUN (Urea Nitrogen) 6 mg/dL (8.9-20.6); Calc. Creatinine Clearance 150 mL/min (70-130); Calcium 7.7 mg/dL (7.8-10.44); Carbon Dioxide 26 mmol/L (22-29); Chloride 93 mmol/L (98-107); Glucose 85 mg/dL (70-105); Potassium 4.7 mmol/L (3.5-5.1); Sodium 126 mmol/L (136-145)
[2021-10-21] MEDS: Aspirin 81 mg Enteric Coated Tablet PO SCH (10:33)
[2021-10-21] MEDS: Thiamine 100 MG TAB PO SCH (10:34)
[2021-10-21] MEDS: Folic Acid 1 MG TAB PO SCH (10:34)
[2021-10-21] MEDS: Enoxaparin Sodium 40 MG/0.4 ML SYRINGE SC SCH (10:34)
[2021-10-21] MEDS: Multivit, Therapeutic 1 TAB PO SCH (10:34)
[2021-10-21] MEDS: Polyethylene Glycol 3350 17 GM Packet PO SCH (10:35)
[2021-10-21] MEDS: cefTRIAXone\\ROCEPHIN 1 GM in Sodium Chloride 0.9% 100 ML IVPB SCH (13:51)
[2021-10-21 17:36] LABS: Bacteria/HPF 4+ HPF (None Seen); Bilirubin 2+ (Negative); Blood, Urine 3+ (Negative); Clarity Extra Turbid (Clear); Glucose, Urine (Dipstick) Normal (Negative); Ketone, Urine Negative (Negative); Leukocyte Negative Leu/uL (Negative); Nitrite Negative (Negative); Protein, Urine (Dipstick) 70 mg/dL (Neg-Trace); Specific Gravity, Urine 1.034 (1.002-1.036); Squamous Epithelial None Seen HPF (0-3); Urobilinogen Normal mg/dL (Less than 2); WBC/HPF None Seen HPF (0-3); pH, Urine 5.5 (5.0-9.0)
[2021-10-21] MEDS: Albumin 25% 25 GM/100 ML BOT IVPB SCH (20:59)
[2021-10-22 05:23] LABS: ALT (SGPT) 75 U/L (8-55); AST (SGOT) 146 U/L (5-34); Alkaline Phosphatase 216 U/L (40-110); Anion Gap 13 mmol/L (10-20); BUN (Urea Nitrogen) 6 mg/dL (8.9-20.6); Bilirubin, Total 14.4 mg/dL (0.2-1.2); Calc. Creatinine Clearance 141 mL/min (70-130); Calcium 7.7 mg/dL (7.8-10.44); Carbon Dioxide 25 mmol/L (22-29); Chloride 92 mmol/L (98-107); Globulin 2.9 g/dL (2.4-3.5); Glucose 83 mg/dL (70-105); Magnesium 2.2 mg/dL (1.6-2.6); Potassium 4.4 mmol/L (3.5-5.1); Protein, Total 5.9 g/dL (6.0-8.3); Sodium 126 mmol/L (136-145)
[2021-10-22] MEDS: Vancomycin 1 GM in Premix Bag 1 BAG IVPB SCH (05:30)
[2021-10-22 05:53] LABS: Band 13 % (5-11); Lymphocytes 17 % (21-51); MDiff Complete? YES; Monocytes 8 % (0-10); Neutrophil 62 % (42-75)
[2021-10-22 05:54] LABS: Hemoglobin 11.3 g/dL (14.0-18.0); Mean Corpuscular HGB CONC 32.5 g/dL (32.0-36.0); Mean Corpuscular Hemoglobin 41.9 pg (27.0-31.0); Mean Platelet Volume 7.1 fL (7.4-10.4); Platelet Count 217 thou/uL (130-400); RBC Distribution Width 17.6 % (11.5-14.5); Red Blood Cell (RBC) Count 2.69 mill/uL (4.70-6.10); White Blood Cell (WBC) Count 17.4 thou/uL (4.8-10.8)
[2021-10-22] MEDS ORDERED: Furosemide 40 MG TAB PO SCH (07:30)
[2021-10-22] MEDS ORDERED: Spironolactone 100 MG TAB PO SCH (08:00)
[2021-10-22] MEDS: Polyethylene Glycol 3350 17 GM Packet PO SCH (09:18)
[2021-10-22] MEDS: Thiamine 100 MG TAB PO SCH (09:23)
[2021-10-22] MEDS: Folic Acid 1 MG TAB PO SCH (09:23)
[2021-10-22] MEDS: Multivit, Therapeutic 1 TAB PO SCH (09:23)
[2021-10-22] MEDS: Albumin 25% 25 GM/100 ML BOT IVPB SCH ×2 (09:23→20:46)
[2021-10-22] MEDS: Aspirin 81 mg Enteric Coated Tablet PO SCH (09:23)
[2021-10-22] MEDS: Enoxaparin Sodium 40 MG/0.4 ML SYRINGE SC SCH (09:23)
[2021-10-22 11:10] LABS: INR-International Normal Ratio 1.9; Prothrombin Time 21.8 sec (12.0-14.7)
[2021-10-22] MEDS: cefTRIAXone\\ROCEPHIN 1 GM in Sodium Chloride 0.9% 100 ML IVPB SCH (12:39)
[2021-10-22] MEDS ORDERED: Furosemide 40 MG/4 ML VIAL SLOW IVP SCH (15:00)
[2021-10-22 19:20] LABS: ANA Symphony (Qualitative) Equivocal: See Note (Negative); CENP IgG Antibody 1.4 EliAU/mL (<7 Negative); EliA Vaculitis New Method **** NEW METHOD ****; Jo-1 IgG Antibody 0.6 EliAU/mL (<7 Negative); Mitochondrial Ab 5.1 U/mL (<4 Negative); RNP70 IgG Antibody 0.9 EliAU/mL (<7 Negative); SSA/Ro IgG Antibody 1.4 EliAU/mL (<7 Negative); SSB/La IgG Antibody 0.9 EliAU/mL (<7 Negative); Scleroderma-70 IgG Antibody 2.3 EliAU/mL (<7 Negative); dsDNA IgG Antibody 2.4 IU/mL (<10 Negative)
[2021-10-22] MEDS: Simethicone Chewable 80 MG TAB PO PRN (21:41)
[2021-10-22] MEDS: ALPRAZolam 0.25 MG TAB PO PRN (21:41)
[2021-10-23] MEDS: Furosemide 40 MG/4 ML VIAL SLOW IVP SCH ×2 (05:46→13:47)
[2021-10-23 06:42] LABS: #Monocytes 2.1 thou/uL (0.11-0.59); #Neutrophils 13.9 thou/uL (1.40-6.50); %Basophils 0.2 % (0.0-1.0); %Eosinophils 0.1 % (0.0-10.0); %Lymphocytes 10.9 % (21.0-51.0); %Monocytes 11.6 % (0.0-10.0); %Neutrophils 77.2 % (42.0-75.0); Hemoglobin 11.8 g/dL (14.0-18.0); Mean Corpuscular HGB CONC 33.9 g/dL (32.0-36.0); Mean Corpuscular Hemoglobin 43.6 pg (27.0-31.0); Mean Platelet Volume 7.5 fL (7.4-10.4); Platelet Count 208 thou/uL (130-400); RBC Distribution Width 17.2 % (11.5-14.5)
[2021-10-23 06:54] LABS: INR-International Normal Ratio 1.7
[2021-10-23 07:03] LABS: ALT (SGPT) 64 U/L (8-55); AST (SGOT) 138 U/L (5-34); Albumin 3.2 g/dL (3.5-5.0); Alkaline Phosphatase 182 U/L (40-110); Anion Gap 14 mmol/L (10-20); BUN (Urea Nitrogen) 7 mg/dL (8.9-20.6); Bilirubin, Total 16.1 mg/dL (0.2-1.2); Calc. Creatinine Clearance 151 mL/min (70-130); Calcium 7.9 mg/dL (7.8-10.44); Carbon Dioxide 25 mmol/L (22-29); Chloride 90 mmol/L (98-107); Globulin 2.8 g/dL (2.4-3.5); Glucose 85 mg/dL (70-105); Magnesium 2.1 mg/dL (1.6-2.6); Potassium 3.4 mmol/L (3.5-5.1); Sodium 126 mmol/L (136-145)
[2021-10-23] MEDS ORDERED: Potassium Chloride 20 MEQ TAB PO SCH (08:00)
[2021-10-23] MEDS: Aspirin 81 mg Enteric Coated Tablet PO SCH (08:41)
[2021-10-23] MEDS: Folic Acid 1 MG TAB PO SCH (08:42)
[2021-10-23] MEDS: Polyethylene Glycol 3350 17 GM Packet PO SCH ×2 (08:42→18:22)
[2021-10-23] MEDS: Multivit, Therapeutic 1 TAB PO SCH (08:42)
[2021-10-23] MEDS: Thiamine 100 MG TAB PO SCH (08:42)
[2021-10-23] MEDS: Enoxaparin Sodium 40 MG/0.4 ML SYRINGE SC SCH ×2 (08:46→11:59)
[2021-10-23] MEDS ORDERED: Albumin 25% 25 GM/100 ML BOT IVPB SCH (09:30)
[2021-10-23] MEDS: Pantoprazole 40 MG VIAL IVP SCH (09:43)
[2021-10-23] MEDS: Albumin 25% 25 GM/100 ML BOT IVPB SCH ×3 (09:43→22:13)
[2021-10-23 18:36] LABS: Bilirubin 1+ (Negative); Blood, Urine Negative (Negative); Clarity Clear (Clear); Glucose, Urine (Dipstick) Normal (Negative); Ketone, Urine Negative (Negative); Leukocyte Negative Leu/uL (Negative); Nitrite Negative (Negative); Protein, Urine (Dipstick) Negative (Neg-Trace); RBC/HPF None Seen HPF (0-3); Squamous Epithelial 0-3 HPF (0-3); Urobilinogen Normal mg/dL (Less than 2); WBC/HPF 0-3 HPF (0-3)
[2021-10-23 18:37] LABS: Bacteria/HPF 1+ HPF (None Seen)
[2021-10-23 18:38] LABS: Urine Culture Reflex Yes Yes
[2021-10-23] MEDS: traMADol HCl 50 MG TAB PO SCH (22:18)
[2021-10-24] MEDS: Albumin 25% 25 GM/100 ML BOT IVPB SCH ×3 (05:22→17:16)
[2021-10-24] MEDS: Furosemide 40 MG/4 ML VIAL SLOW IVP SCH ×2 (05:22→15:47)
[2021-10-24] MEDS: traMADol HCl 50 MG TAB PO SCH (05:25)
[2021-10-24 06:34] LABS: #Lymphocytes 1.6 thou/uL (1.20-3.40); #Monocytes 1.8 thou/uL (0.11-0.59); #Neutrophils 12.9 thou/uL (1.40-6.50); %Basophils 0.2 % (0.0-1.0); %Eosinophils 0.1 % (0.0-10.0); %Lymphocytes 9.9 % (21.0-51.0); %Monocytes 10.8 % (0.0-10.0); Hemoglobin 10.4 g/dL (14.0-18.0); Mean Corpuscular HGB CONC 31.9 g/dL (32.0-36.0); Mean Corpuscular Hemoglobin 40.7 pg (27.0-31.0); Platelet Count 213 thou/uL (130-400); RBC Distribution Width 16.8 % (11.5-14.5); Red Blood Cell (RBC) Count 2.57 mill/uL (4.70-6.10); White Blood Cell (WBC) Count 16.4 thou/uL (4.8-10.8)
[2021-10-24 06:47] LABS: INR-International Normal Ratio 1.7; Prothrombin Time 19.9 sec (12.0-14.7)
[2021-10-24 06:57] LABS: ALT (SGPT) 55 U/L (8-55); AST (SGOT) 130 U/L (5-34); Albumin 3.9 g/dL (3.5-5.0); Alkaline Phosphatase 149 U/L (40-110); Anion Gap 16 mmol/L (10-20); BUN (Urea Nitrogen) 7 mg/dL (8.9-20.6); Bilirubin, Total 16.3 mg/dL (0.2-1.2); Calc. Creatinine Clearance 135 mL/min (70-130); Calcium 8.2 mg/dL (7.8-10.44); Carbon Dioxide 25 mmol/L (22-29); Chloride 90 mmol/L (98-107); Globulin 2.3 g/dL (2.4-3.5); Glucose 89 mg/dL (70-105); Potassium 3.5 mmol/L (3.5-5.1); Protein, Total 6.2 g/dL (6.0-8.3); Sodium 127 mmol/L (136-145)
[2021-10-24] MEDS ORDERED: Potassium Chloride 20 MEQ TAB PO SCH (08:00)
[2021-10-24] MEDS: Aspirin 81 mg Enteric Coated Tablet PO SCH (08:36)
[2021-10-24] MEDS: Folic Acid 1 MG TAB PO SCH (08:36)
[2021-10-24] MEDS: Multivit, Therapeutic 1 TAB PO SCH (08:36)
[2021-10-24] MEDS: Pantoprazole 40 MG VIAL IVP SCH (08:36)
[2021-10-24] MEDS: Thiamine 100 MG TAB PO SCH (08:36)
[2021-10-24] MEDS: Enoxaparin Sodium 40 MG/0.4 ML SYRINGE SC SCH (08:37)
[2021-10-24] MEDS: Polyethylene Glycol 3350 17 GM Packet PO SCH ×2 (08:37→09:42)
[2021-10-24] MEDS ORDERED: Furosemide 40 MG/4 ML VIAL SLOW IVP SCH (09:15)
[2021-10-24] MEDS ORDERED: Lidocaine 1% PF 5 ML VIAL ONE (13:59)
[2021-10-24] MEDS ORDERED: Sodium Bicarbonate 2.5 MEQ/5 ML VIAL ONE (13:59)
[2021-10-24] MEDS: traMADol HCl 50 MG TAB PO PRN (17:20)
[2021-10-25] MEDS: Albumin 25% 25 GM/100 ML BOT IVPB SCH ×4 (00:25→17:55)
[2021-10-25] MEDS: Furosemide 40 MG/4 ML VIAL SLOW IVP SCH ×2 (06:04→13:27)
[2021-10-25 07:09] LABS: Hemoglobin 10.6 g/dL (14.0-18.0); Mean Corpuscular HGB CONC 32.1 g/dL (32.0-36.0); Mean Corpuscular Hemoglobin 40.9 pg (27.0-31.0); Mean Platelet Volume 7.1 fL (7.4-10.4); Platelet Count 210 thou/uL (130-400); RBC Distribution Width 16.8 % (11.5-14.5); White Blood Cell (WBC) Count 16.3 thou/uL (4.8-10.8)
[2021-10-25 07:12] LABS: INR-International Normal Ratio 1.7; Prothrombin Time 20.3 sec (12.0-14.7)
[2021-10-25 07:22] LABS: ALT (SGPT) 51 U/L (8-55); AST (SGOT) 142 U/L (5-34); Albumin 3.8 g/dL (3.5-5.0); Alkaline Phosphatase 131 U/L (40-110); Anion Gap 16 mmol/L (10-20); BUN (Urea Nitrogen) 7 mg/dL (8.9-20.6); Bilirubin, Total 16.4 mg/dL (0.2-1.2); Calc. Creatinine Clearance 147 mL/min (70-130); Calcium 8.3 mg/dL (7.8-10.44); Carbon Dioxide 27 mmol/L (22-29); Chloride 89 mmol/L (98-107); Glucose 83 mg/dL (70-105); Potassium 3.7 mmol/L (3.5-5.1); Protein, Total 5.8 g/dL (6.0-8.3); Sodium 128 mmol/L (136-145)
[2021-10-25 08:22] LABS: Band 20 % (5-11); Lymphocytes 16 % (21-51); MDiff Complete? YES; Macrocytosis MARKED = >30 cells (100X) (0-5/hpf); Monocytes 5 % (0-10); Neutrophil 59 % (42-75); Platelet Morphology Comment Appears Adequate; Polychromasia MODERATE = 3-4 cells (100X) (0-2/hpf); Stomatocytes SLIGHT = 2-5 cells (100X) (0-1/hpf)
[2021-10-25] MEDS: Folic Acid 1 MG TAB PO SCH (09:02)
[2021-10-25] MEDS: Aspirin 81 mg Enteric Coated Tablet PO SCH (09:02)
[2021-10-25] MEDS: Enoxaparin Sodium 40 MG/0.4 ML SYRINGE SC SCH (09:02)
[2021-10-25] MEDS: Multivit, Therapeutic 1 TAB PO SCH (09:02)
[2021-10-25] MEDS: Thiamine 100 MG TAB PO SCH (09:02)
[2021-10-25] MEDS: Pantoprazole 40 MG VIAL IVP SCH (09:03)
[2021-10-25] MEDS: Polyethylene Glycol 3350 17 GM Packet PO SCH (09:03)
[2021-10-25] MEDS: traMADol HCl 50 MG TAB PO PRN (21:53)
[2021-10-26] MEDS: Albumin 25% 25 GM/100 ML BOT IVPB SCH ×2 (01:17→05:41)
[2021-10-26] MEDS: Furosemide 40 MG/4 ML VIAL SLOW IVP SCH (05:41)
[2021-10-26 06:34] LABS: #Lymphocytes 1.7 thou/uL (1.20-3.40); #Monocytes 1.3 thou/uL (0.11-0.59); #Neutrophils 12.1 thou/uL (1.40-6.50); %Basophils 0.2 % (0.0-1.0); %Eosinophils 0.1 % (0.0-10.0); %Lymphocytes 11.2 % (21.0-51.0); %Monocytes 8.7 % (0.0-10.0); %Neutrophils 79.9 % (42.0-75.0); Hemoglobin 10.7 g/dL (14.0-18.0); Mean Corpuscular HGB CONC 32.3 g/dL (32.0-36.0); Mean Platelet Volume 6.9 fL (7.4-10.4); Platelet Count 197 thou/uL (130-400); RBC Distribution Width 16.4 % (11.5-14.5); Red Blood Cell (RBC) Count 2.62 mill/uL (4.70-6.10); White Blood Cell (WBC) Count 15.1 thou/uL (4.8-10.8)
[2021-10-26 06:47] LABS: Anion Gap 16 mmol/L (10-20); BUN (Urea Nitrogen) 7 mg/dL (8.9-20.6); Calc. Creatinine Clearance 141 mL/min (70-130); Calcium 8.4 mg/dL (7.8-10.44); Carbon Dioxide 28 mmol/L (22-29); Chloride 87 mmol/L (98-107); Glucose 93 mg/dL (70-105); Potassium 3.2 mmol/L (3.5-5.1); Sodium 128 mmol/L (136-145)
[2021-10-26] MEDS ORDERED: Potassium Chloride 20 MEQ TAB PO SCH ×2 (08:00→08:15)
[2021-10-26 09:19] LABS: Protein, Total 5.8 g/dL (6.0-8.3)
[2021-10-26 09:20] LABS: Bilirubin, Total 17.5 mg/dL (0.2-1.2)
[2021-10-26 09:21] LABS: Alkaline Phosphatase 113 U/L (40-110)
[2021-10-26] MEDS: Folic Acid 1 MG TAB PO SCH (09:22)
[2021-10-26] MEDS: Polyethylene Glycol 3350 17 GM Packet PO SCH (09:22)
[2021-10-26] MEDS: Thiamine 100 MG TAB PO SCH (09:22)
[2021-10-26] MEDS: Multivit, Therapeutic 1 TAB PO SCH (09:22)
[2021-10-26] MEDS: Aspirin 81 mg Enteric Coated Tablet PO SCH (09:22)
[2021-10-26] MEDS: Enoxaparin Sodium 40 MG/0.4 ML SYRINGE SC SCH (09:22)
[2021-10-26 09:23] LABS: AST (SGOT) 141 U/L (5-34)
[2021-10-26 09:24] LABS: ALT (SGPT) 49 U/L (8-55)
[2021-10-26 10:06] LABS: Bilirubin, Direct 10.8 mg/dL (0.1-0.3)
[2021-10-26 12:35] LABS: SARS-CoV-2 PCR by NAA Not Detected (NotDetected)
[2021-10-26] MEDS: Furosemide 40 MG TAB PO SCH (14:01)
[2021-10-27 06:04] LABS: ALT (SGPT) 58 U/L (8-55); AST (SGOT) 177 U/L (5-34); Albumin 3.9 g/dL (3.5-5.0); Alkaline Phosphatase 128 U/L (40-110); Anion Gap 14 mmol/L (10-20); BUN (Urea Nitrogen) 8 mg/dL (8.9-20.6); Bilirubin, Total 20.4 mg/dL (0.2-1.2); Calc. Creatinine Clearance 117 mL/min (70-130); Calcium 9.1 mg/dL (7.8-10.44); Carbon Dioxide 29 mmol/L (22-29); Chloride 89 mmol/L (98-107); Globulin 2.1 g/dL (2.4-3.5); Glucose 123 mg/dL (70-105); Potassium 3.7 mmol/L (3.5-5.1); Sodium 128 mmol/L (136-145)
[2021-10-27] MEDS: Spironolactone 25 MG TAB PO SCH (08:54)
[2021-10-27] MEDS: Furosemide 40 MG TAB PO SCH ×2 (08:54→13:35)
[2021-10-27] MEDS: Enoxaparin Sodium 40 MG/0.4 ML SYRINGE SC SCH (08:54)
[2021-10-27] MEDS: Polyethylene Glycol 3350 17 GM Packet PO SCH (08:54)
[2021-10-27] MEDS: Aspirin 81 mg Enteric Coated Tablet PO SCH (08:54)
[2021-10-27] MEDS: Folic Acid 1 MG TAB PO SCH (08:54)
[2021-10-27] MEDS: Multivit, Therapeutic 1 TAB PO SCH (08:54)
[2021-10-27] MEDS: Thiamine 100 MG TAB PO SCH (08:54)
[2021-10-27 10:46] LABS: INR-International Normal Ratio 1.9; Prothrombin Time 22.5 sec (12.0-14.7)
[2021-10-28] MEDS: Simethicone Chewable 80 MG TAB PO PRN ×2 (02:59→22:42)
[2021-10-28] MEDS: Bisacodyl 5 MG TAB PO PRN (06:00)
[2021-10-28 06:07] LABS: Anion Gap 14 mmol/L (10-20); BUN (Urea Nitrogen) 13 mg/dL (8.9-20.6); Calc. Creatinine Clearance 104 mL/min (70-130); Calcium 8.6 mg/dL (7.8-10.44); Carbon Dioxide 28 mmol/L (22-29); Chloride 89 mmol/L (98-107); Glucose 98 mg/dL (70-105); Potassium 3.8 mmol/L (3.5-5.1); Sodium 127 mmol/L (136-145)
[2021-10-28 06:09] LABS: Hemoglobin 11.4 g/dL (14.0-18.0); Mean Corpuscular HGB CONC 31.9 g/dL (32.0-36.0); Mean Corpuscular Hemoglobin 39.9 pg (27.0-31.0); Platelet Count 185 thou/uL (130-400); RBC Distribution Width 16.5 % (11.5-14.5); Red Blood Cell (RBC) Count 2.85 mill/uL (4.70-6.10); White Blood Cell (WBC) Count 19.8 thou/uL (4.8-10.8)
[2021-10-28 06:10] LABS: Anisocytosis SLIGHT = 6-15 cells (100X) (0-5/hpf); Band 4 % (5-11); Hypochromia SLIGHT = 6-15 cells (100X) (0-5/hpf); Lymphocytes 9 % (21-51); MDiff Complete? YES; Macrocytosis MODERATE=16-30 cells (100X) (0-5/hpf); Monocytes 4 % (0-10); Neutrophil 83 % (42-75); Platelet Morphology Comment Appears Adequate; Polychromasia SLIGHT = 2-3 cells (100X) (0-2/hpf); Target Cells MODERATE= 6-15 cells (100X) (0-1/hpf)
[2021-10-28] MEDS: Thiamine 100 MG TAB PO SCH (08:06)
[2021-10-28] MEDS: Folic Acid 1 MG TAB PO SCH (08:06)
[2021-10-28] MEDS: Furosemide 40 MG TAB PO SCH ×2 (08:06→14:14)
[2021-10-28] MEDS: Spironolactone 25 MG TAB PO SCH (08:06)
[2021-10-28] MEDS: Multivit, Therapeutic 1 TAB PO SCH (08:06)
[2021-10-28] MEDS: Aspirin 81 mg Enteric Coated Tablet PO SCH (08:06)
[2021-10-28] MEDS: Enoxaparin Sodium 40 MG/0.4 ML SYRINGE SC SCH (08:07)
[2021-10-28] MEDS ORDERED: Polyethylene Glycol 3350 17 GM Packet PO SCH (09:00)
[2021-10-28] MEDS: Senokot S 8.6-50 MG TAB PO SCH (21:20)
[2021-10-29 06:20] LABS: INR-International Normal Ratio 1.8; Prothrombin Time 21.1 sec (12.0-14.7)
[2021-10-29 06:24] LABS: Band 14 % (5-11); Hemoglobin 11.8 g/dL (14.0-18.0); Lymphocytes 8 % (21-51); MDiff Complete? YES; Macrocytosis SLIGHT = 6-15 cells (100X) (0-5/hpf); Mean Corpuscular HGB CONC 32.5 g/dL (32.0-36.0); Mean Corpuscular Hemoglobin 40.6 pg (27.0-31.0); Mean Platelet Volume 6.9 fL (7.4-10.4); Monocytes 18 % (0-10); Neutrophil 60 % (42-75); Platelet Count 201 thou/uL (130-400); Platelet Morphology Comment Appears Adequate; RBC Distribution Width 16.6 % (11.5-14.5); White Blood Cell (WBC) Count 21.6 thou/uL (4.8-10.8)
[2021-10-29 06:29] LABS: ALT (SGPT) 55 U/L (8-55); AST (SGOT) 141 U/L (5-34); Albumin 3.4 g/dL (3.5-5.0); Alkaline Phosphatase 142 U/L (40-110); Anion Gap 16 mmol/L (10-20); BUN (Urea Nitrogen) 17 mg/dL (8.9-20.6); Bilirubin, Total 22.4 mg/dL (0.2-1.2); Calc. Creatinine Clearance 89 mL/min (70-130); Calcium 8.8 mg/dL (7.8-10.44); Carbon Dioxide 27 mmol/L (22-29); Chloride 89 mmol/L (98-107); Globulin 2.4 g/dL (2.4-3.5); Glucose 95 mg/dL (70-105); Potassium 3.6 mmol/L (3.5-5.1); Protein, Total 5.8 g/dL (6.0-8.3); Sodium 128 mmol/L (136-145)
[2021-10-29] MEDS: Furosemide 40 MG TAB PO SCH ×2 (10:00→14:48)
[2021-10-29] MEDS: Folic Acid 1 MG TAB PO SCH (10:00)
[2021-10-29] MEDS: Spironolactone 25 MG TAB PO SCH (10:00)
[2021-10-29] MEDS: Multivit, Therapeutic 1 TAB PO SCH (10:00)
[2021-10-29] MEDS: Thiamine 100 MG TAB PO SCH (10:00)
[2021-10-29] MEDS: Aspirin 81 mg Enteric Coated Tablet PO SCH (10:00)
[2021-10-29] MEDS: Enoxaparin Sodium 40 MG/0.4 ML SYRINGE SC SCH (10:01)
[2021-10-29] MEDS: Senokot S 8.6-50 MG TAB PO SCH ×2 (10:02→21:51)
[2021-10-29] MEDS: Simethicone Chewable 80 MG TAB PO PRN (19:10)
[2021-10-29] MEDS: ALPRAZolam 0.25 MG TAB PO PRN (21:46)
[2021-10-30 07:34] LABS: INR-International Normal Ratio 1.7; Prothrombin Time 20.1 sec (12.0-14.7)
[2021-10-30 07:46] LABS: Mean Corpuscular HGB CONC 32.6 g/dL (32.0-36.0); Mean Corpuscular Hemoglobin 41.2 pg (27.0-31.0); Mean Platelet Volume 7.4 fL (7.4-10.4); Platelet Count 180 thou/uL (130-400); RBC Distribution Width 16.6 % (11.5-14.5); Red Blood Cell (RBC) Count 3.15 mill/uL (4.70-6.10); White Blood Cell (WBC) Count 20.2 thou/uL (4.8-10.8)
[2021-10-30 07:48] LABS: ALT (SGPT) 58 U/L (8-55); AST (SGOT) 153 U/L (5-34); Albumin 3.4 g/dL (3.5-5.0); Alkaline Phosphatase 150 U/L (40-110); Anion Gap 18 mmol/L (10-20); BUN (Urea Nitrogen) 20 mg/dL (8.9-20.6); Calc. Creatinine Clearance 88 mL/min (70-130); Calcium 8.7 mg/dL (7.8-10.44); Carbon Dioxide 24 mmol/L (22-29); Chloride 89 mmol/L (98-107); Globulin 2.8 g/dL (2.4-3.5); Glucose 103 mg/dL (70-105); Potassium 3.6 mmol/L (3.5-5.1); Protein, Total 6.2 g/dL (6.0-8.3); Sodium 127 mmol/L (136-145)
[2021-10-30 07:58] LABS: Bilirubin, Total 23.8 mg/dL (0.2-1.2)
[2021-10-30 08:15] LABS: Band 5 % (5-11); Lymphocytes 8 % (21-51); MDiff Complete? YES; Macrocytosis MARKED = >30 cells (100X) (0-5/hpf); Monocytes 6 % (0-10); Myelocyte 1 % (0-0); Neutrophil 80 % (42-75); Platelet Morphology Comment Appears Adequate; Polychromasia SLIGHT = 2-3 cells (100X) (0-2/hpf)
[2021-10-30] MEDS: Folic Acid 1 MG TAB PO SCH (09:10)
[2021-10-30] MEDS: Multivit, Therapeutic 1 TAB PO SCH (09:10)
[2021-10-30] MEDS: Aspirin 81 mg Enteric Coated Tablet PO SCH (09:10)
[2021-10-30] MEDS: Thiamine 100 MG TAB PO SCH (09:10)
[2021-10-30] MEDS: Spironolactone 25 MG TAB PO SCH (09:11)
[2021-10-30] MEDS: Enoxaparin Sodium 40 MG/0.4 ML SYRINGE SC SCH (09:11)
[2021-10-30] MEDS: Senokot S 8.6-50 MG TAB PO SCH ×2 (09:20→21:10)
[2021-10-30] MEDS: Simethicone Chewable 80 MG TAB PO SCH ×3 (12:33→21:03)
[2021-10-30] MEDS: Albumin 25% 25 GM/100 ML BOT IVPB SCH ×2 (12:33→17:32)
[2021-10-30] MEDS: Bisacodyl 5 MG TAB PO PRN (17:38)
[2021-10-30] MEDS: Rifaximin 550 MG TAB PO SCH (21:03)
[2021-10-31] MEDS: Albumin 25% 25 GM/100 ML BOT IVPB SCH ×2 (00:30→05:18)
[2021-10-31 06:52] LABS: Hemoglobin 10.1 g/dL (14.0-18.0); Mean Corpuscular HGB CONC 31.6 g/dL (32.0-36.0); Mean Corpuscular Hemoglobin 38.9 pg (27.0-31.0); Mean Platelet Volume 6.8 fL (7.4-10.4); Platelet Count 156 thou/uL (130-400); RBC Distribution Width 16.1 % (11.5-14.5); Red Blood Cell (RBC) Count 2.61 mill/uL (4.70-6.10); White Blood Cell (WBC) Count 17.3 thou/uL (4.8-10.8)
[2021-10-31 06:55] LABS: ALT (SGPT) 44 U/L (8-55); AST (SGOT) 115 U/L (5-34); Albumin 4.1 g/dL (3.5-5.0); Alkaline Phosphatase 114 U/L (40-110); Anion Gap 16 mmol/L (10-20); BUN (Urea Nitrogen) 22 mg/dL (8.9-20.6); Bilirubin, Total 22.3 mg/dL (0.2-1.2); Calc. Creatinine Clearance 88 mL/min (70-130); Calcium 8.9 mg/dL (7.8-10.44); Carbon Dioxide 26 mmol/L (22-29); Chloride 87 mmol/L (98-107); Globulin 2.1 g/dL (2.4-3.5); Glucose 96 mg/dL (70-105); Potassium 3.2 mmol/L (3.5-5.1); Protein, Total 6.2 g/dL (6.0-8.3); Sodium 126 mmol/L (136-145)
[2021-10-31 06:57] LABS: INR-International Normal Ratio 1.9; Prothrombin Time 22.4 sec (12.0-14.7)
[2021-10-31 07:59] LABS: Band 13 % (5-11); Lymphocytes 9 % (21-51); MDiff Complete? YES; Macrocytosis MODERATE=16-30 cells (100X) (0-5/hpf); Metamyelocyte 1 % (0-0); Monocytes 5 % (0-10); Neutrophil 72 % (42-75); Platelet Morphology Comment Appears Adequate; Polychromasia SLIGHT = 2-3 cells (100X) (0-2/hpf)
[2021-10-31] MEDS ORDERED: Potassium Chloride 20 MEQ TAB PO SCH (08:00)
[2021-10-31] MEDS: Polyethylene Glycol 3350 17 GM Packet PO SCH (08:21)
[2021-10-31] MEDS: Spironolactone 25 MG TAB PO SCH (08:22)
[2021-10-31] MEDS: Aspirin 81 mg Enteric Coated Tablet PO SCH (08:22)
[2021-10-31] MEDS: Multivit, Therapeutic 1 TAB PO SCH (08:22)
[2021-10-31] MEDS: Rifaximin 550 MG TAB PO SCH ×2 (08:22→20:54)
[2021-10-31] MEDS: Senokot S 8.6-50 MG TAB PO SCH ×2 (08:22→20:54)
[2021-10-31] MEDS: Simethicone Chewable 80 MG TAB PO SCH ×4 (08:22→21:02)
[2021-10-31] MEDS: Folic Acid 1 MG TAB PO SCH (08:22)
[2021-10-31] MEDS: Enoxaparin Sodium 40 MG/0.4 ML SYRINGE SC SCH (08:23)
[2021-10-31] MEDS: Furosemide 40 MG TAB PO SCH (08:23)
[2021-10-31] MEDS: Thiamine 100 MG TAB PO SCH (08:23)
[2021-10-31] MEDS ORDERED: Sodium Bicarbonate 2.5 MEQ/5 ML VIAL ONE (13:29)
[2021-10-31] MEDS ORDERED: Lidocaine 1% PF 5 ML VIAL ONE (13:29)
[2021-10-31] MEDS: traMADol HCl 50 MG TAB PO PRN (21:01)
[2021-11-01 07:08] LABS: Hemoglobin 12.1 g/dL (14.0-18.0); Mean Corpuscular HGB CONC 32.7 g/dL (32.0-36.0); Mean Corpuscular Hemoglobin 40.4 pg (27.0-31.0); Mean Platelet Volume 7.4 fL (7.4-10.4); Platelet Count 184 thou/uL (130-400); RBC Distribution Width 15.8 % (11.5-14.5); Red Blood Cell (RBC) Count 2.99 mill/uL (4.70-6.10); White Blood Cell (WBC) Count 22.8 thou/uL (4.8-10.8)
[2021-11-01 07:13] LABS: Anion Gap 14 mmol/L (10-20); BUN (Urea Nitrogen) 24 mg/dL (8.9-20.6); Calc. Creatinine Clearance 93 mL/min (70-130); Calcium 8.9 mg/dL (7.8-10.44); Carbon Dioxide 26 mmol/L (22-29); Chloride 87 mmol/L (98-107); Glucose 110 mg/dL (70-105); Potassium 3.4 mmol/L (3.5-5.1); Sodium 124 mmol/L (136-145)
[2021-11-01] MEDS: Multivit, Therapeutic 1 TAB PO SCH (08:12)
[2021-11-01] MEDS: Thiamine 100 MG TAB PO SCH (08:12)
[2021-11-01] MEDS: Spironolactone 25 MG TAB PO SCH (08:12)
[2021-11-01] MEDS: Simethicone Chewable 80 MG TAB PO SCH ×4 (08:13→22:42)
[2021-11-01] MEDS: Senokot S 8.6-50 MG TAB PO SCH ×2 (08:13→20:24)
[2021-11-01] MEDS: Aspirin 81 mg Enteric Coated Tablet PO SCH (08:13)
[2021-11-01] MEDS: Folic Acid 1 MG TAB PO SCH (08:13)
[2021-11-01] MEDS: Furosemide 40 MG TAB PO SCH ×2 (08:14→20:25)
[2021-11-01] MEDS: Rifaximin 550 MG TAB PO SCH ×2 (08:14→20:24)
[2021-11-01] MEDS: Enoxaparin Sodium 40 MG/0.4 ML SYRINGE SC SCH (08:15)
[2021-11-01] MEDS: Polyethylene Glycol 3350 17 GM Packet PO SCH (08:15)
[2021-11-01 08:29] LABS: Band 14 % (5-11); Lymphocytes 12 % (21-51); MDiff Complete? YES; Macrocytosis MARKED = >30 cells (100X) (0-5/hpf); Monocytes 7 % (0-10); Neutrophil 67 % (42-75); Platelet Morphology Comment Appears Adequate; Polychromasia MODERATE = 3-4 cells (100X) (0-2/hpf); Stomatocytes SLIGHT = 2-5 cells (100X) (0-1/hpf); Target Cells SLIGHT = 2-5 cells (100X) (0-1/hpf)
[2021-11-01] MEDS ORDERED: Potassium Chloride 20 MEQ TAB PO SCH (08:45)
[2021-11-01 09:00] LABS: ALT (SGPT) 52 U/L (8-55); AST (SGOT) 153 U/L (5-34); Albumin 3.7 g/dL (3.5-5.0); Alkaline Phosphatase 132 U/L (40-110); Protein, Total 6.1 g/dL (6.0-8.3)
[2021-11-01] MEDS ORDERED: Dextrose 5% in Water 1,000 ML IV SCH (09:00)
[2021-11-01] MEDS ORDERED: Sodium Chloride 1 GM TAB PO SCH (09:00)
[2021-11-01 09:10] LABS: Bilirubin, Total 24.8 mg/dL (0.2-1.2)
[2021-11-01] MEDS ORDERED: Sodium Chloride 256 MEQ in Dextrose 5% in Water 936 ML IV SCH (09:45)
[2021-11-01 09:57] LABS: INR-International Normal Ratio 1.9; Prothrombin Time 22.1 sec (12.0-14.7)
[2021-11-01 10:16] LABS: Bilirubin, Direct 16.2 mg/dL (0.1-0.3)
[2021-11-01] MEDS: Sodium Chloride 256 MEQ in Dextrose 5% in Water 936 ML IV SCH (11:12)
[2021-11-01] MEDS: traMADol HCl 50 MG TAB PO PRN (20:28)
[2021-11-01] MEDS: Melatonin 3 MG TAB PO PRN (22:42)
[2021-11-02 00:32] LABS: Anion Gap 15 mmol/L (10-20); BUN (Urea Nitrogen) 25 mg/dL (8.9-20.6); Calc. Creatinine Clearance 101 mL/min (70-130); Calcium 8.6 mg/dL (7.8-10.44); Carbon Dioxide 22 mmol/L (22-29); Chloride 90 mmol/L (98-107); Glucose 115 mg/dL (70-105); Potassium 4.3 mmol/L (3.5-5.1); Sodium 123 mmol/L (136-145)
[2021-11-02] MEDS ORDERED: Sodium Chloride 256 MEQ in Dextrose 5% in Water 936 ML IV SCH (03:37)
[2021-11-02] MEDS: Sodium Chloride 256 MEQ in Dextrose 5% in Water 936 ML IV SCH (03:38)
[2021-11-02 07:17] LABS: INR-International Normal Ratio 1.8; Prothrombin Time 21.1 sec (12.0-14.7)
[2021-11-02 07:24] LABS: Hemoglobin 11.9 g/dL (14.0-18.0); Mean Corpuscular Hemoglobin 38.9 pg (27.0-31.0); Mean Platelet Volume 7.2 fL (7.4-10.4); Platelet Count 184 thou/uL (130-400); RBC Distribution Width 15.8 % (11.5-14.5); Red Blood Cell (RBC) Count 3.06 mill/uL (4.70-6.10); White Blood Cell (WBC) Count 24.2 thou/uL (4.8-10.8)
[2021-11-02 07:37] LABS: Bilirubin, Total 26.3 mg/dL (0.2-1.2)
[2021-11-02 07:38] LABS: ALT (SGPT) 60 U/L (8-55); AST (SGOT) 170 U/L (5-34); Albumin 3.4 g/dL (3.5-5.0); Alkaline Phosphatase 140 U/L (40-110); Anion Gap 15 mmol/L (10-20); BUN (Urea Nitrogen) 26 mg/dL (8.9-20.6); Calc. Creatinine Clearance 96 mL/min (70-130); Calcium 8.6 mg/dL (7.8-10.44); Carbon Dioxide 27 mmol/L (22-29); Chloride 88 mmol/L (98-107); Globulin 2.4 g/dL (2.4-3.5); Glucose 114 mg/dL (70-105); Potassium 3.7 mmol/L (3.5-5.1); Protein, Total 5.8 g/dL (6.0-8.3); Sodium 126 mmol/L (136-145)
[2021-11-02] MEDS: Simethicone Chewable 80 MG TAB PO SCH ×4 (08:35→20:45)
[2021-11-02] MEDS: Folic Acid 1 MG TAB PO SCH (08:35)
[2021-11-02] MEDS: Rifaximin 550 MG TAB PO SCH ×2 (08:35→20:45)
[2021-11-02] MEDS: Multivit, Therapeutic 1 TAB PO SCH (08:35)
[2021-11-02] MEDS: Spironolactone 25 MG TAB PO SCH (08:35)
[2021-11-02] MEDS: Aspirin 81 mg Enteric Coated Tablet PO SCH (08:35)
[2021-11-02] MEDS: Thiamine 100 MG TAB PO SCH (08:35)
[2021-11-02] MEDS: Senokot S 8.6-50 MG TAB PO SCH ×2 (08:36→20:45)
[2021-11-02] MEDS: Polyethylene Glycol 3350 17 GM Packet PO SCH (08:36)
[2021-11-02] MEDS: Furosemide 40 MG TAB PO SCH ×2 (08:36→20:45)
[2021-11-02] MEDS: Enoxaparin Sodium 40 MG/0.4 ML SYRINGE SC SCH (08:37)
[2021-11-02 09:20] LABS: Anisocytosis SLIGHT = 6-15 cells (100X) (0-5/hpf); Band 4 % (5-11); Lymphocytes 5 % (21-51); MDiff Complete? YES; Monocytes 5 % (0-10); Neutrophil 86 % (42-75); Ovalocytes SLIGHT = 2-5 cells (100X) (0-1/hpf); Platelet Morphology Comment Appears Adequate; Polychromasia SLIGHT = 2-3 cells (100X) (0-2/hpf); Target Cells SLIGHT = 2-5 cells (100X) (0-1/hpf)
[2021-11-02 12:31] LABS: Anion Gap 12 mmol/L (10-20); BUN (Urea Nitrogen) 27 mg/dL (8.9-20.6); Calc. Creatinine Clearance 90 mL/min (70-130); Calcium 8.5 mg/dL (7.8-10.44); Carbon Dioxide 25 mmol/L (22-29); Chloride 91 mmol/L (98-107); Glucose 127 mg/dL (70-105); Potassium 3.9 mmol/L (3.5-5.1); Sodium 124 mmol/L (136-145)
[2021-11-02 19:41] LABS: SARS-CoV-2 PCR by NAA Not Detected (NotDetected)
[2021-11-03 07:33] LABS: INR-International Normal Ratio 1.7; Prothrombin Time 20.7 sec (12.0-14.7)
[2021-11-03 07:45] LABS: ALT (SGPT) 68 U/L (8-55); AST (SGOT) 176 U/L (5-34); Albumin 3.3 g/dL (3.5-5.0); Alkaline Phosphatase 159 U/L (40-110); Anion Gap 16 mmol/L (10-20); BUN (Urea Nitrogen) 28 mg/dL (8.9-20.6); Calc. Creatinine Clearance 92 mL/min (70-130); Calcium 8.7 mg/dL (7.8-10.44); Carbon Dioxide 21 mmol/L (22-29); Chloride 91 mmol/L (98-107); Globulin 2.5 g/dL (2.4-3.5); Glucose 112 mg/dL (70-105); Protein, Total 5.8 g/dL (6.0-8.3); Sodium 124 mmol/L (136-145)
[2021-11-03 07:54] LABS: Bilirubin, Total 24.9 mg/dL (0.2-1.2)
[2021-11-03 08:25] LABS: Anisocytosis SLIGHT = 6-15 cells (100X) (0-5/hpf); Band 11 % (5-11); Hemoglobin 12.1 g/dL (14.0-18.0); Lymphocytes 4 % (21-51); MDiff Complete? YES; Macrocytosis MODERATE=16-30 cells (100X) (0-5/hpf); Mean Corpuscular HGB CONC 31.9 g/dL (32.0-36.0); Mean Corpuscular Hemoglobin 39.4 pg (27.0-31.0); Mean Platelet Volume 7.5 fL (7.4-10.4); Monocytes 9 % (0-10); Neutrophil 75 % (42-75); Platelet Count 212 thou/uL (130-400); Platelet Morphology Comment Appears Adequate; RBC Distribution Width 15.7 % (11.5-14.5); Red Blood Cell (RBC) Count 3.07 mill/uL (4.70-6.10); White Blood Cell (WBC) Count 25.4 thou/uL (4.8-10.8)
[2021-11-03] MEDS: Simethicone Chewable 80 MG TAB PO SCH ×4 (08:36→21:06)
[2021-11-03] MEDS: Polyethylene Glycol 3350 17 GM Packet PO SCH (08:36)
[2021-11-03] MEDS: Furosemide 40 MG TAB PO SCH ×2 (08:37→21:06)
[2021-11-03] MEDS: Folic Acid 1 MG TAB PO SCH (08:37)
[2021-11-03] MEDS: Aspirin 81 mg Enteric Coated Tablet PO SCH (08:37)
[2021-11-03] MEDS: Thiamine 100 MG TAB PO SCH (08:37)
[2021-11-03] MEDS: Enoxaparin Sodium 40 MG/0.4 ML SYRINGE SC SCH (08:37)
[2021-11-03] MEDS: Multivit, Therapeutic 1 TAB PO SCH (08:37)
[2021-11-03] MEDS: Spironolactone 25 MG TAB PO SCH (08:37)
[2021-11-03] MEDS: Rifaximin 550 MG TAB PO SCH ×2 (08:37→21:06)
[2021-11-03] MEDS: Senokot S 8.6-50 MG TAB PO SCH ×2 (08:37→21:06)
[2021-11-03] MEDS: Bisacodyl 5 MG TAB PO PRN (12:14)
[2021-11-03] MEDS: Sodium Chloride 256 MEQ in Dextrose 5% in Water 936 ML IV SCH (17:11)
[2021-11-03 18:09] LABS: Anion Gap 12 mmol/L (10-20); BUN (Urea Nitrogen) 27 mg/dL (8.9-20.6); Calc. Creatinine Clearance 84 mL/min (70-130); Calcium 8.4 mg/dL (7.8-10.44); Carbon Dioxide 23 mmol/L (22-29); Chloride 93 mmol/L (98-107); Glucose 124 mg/dL (70-105); Potassium 3.8 mmol/L (3.5-5.1); Sodium 124 mmol/L (136-145)
[2021-11-03] MEDS: Melatonin 3 MG TAB PO PRN (23:57)
[2021-11-04 06:32] LABS: Hemoglobin 12.1 g/dL (14.0-18.0); Mean Corpuscular HGB CONC 32.6 g/dL (32.0-36.0); Mean Corpuscular Hemoglobin 39.6 pg (27.0-31.0); Mean Platelet Volume 7.4 fL (7.4-10.4); Platelet Count 251 thou/uL (130-400); RBC Distribution Width 15.5 % (11.5-14.5); Red Blood Cell (RBC) Count 3.05 mill/uL (4.70-6.10); White Blood Cell (WBC) Count 29.2 thou/uL (4.8-10.8)
[2021-11-04 06:43] LABS: INR-International Normal Ratio 1.7; Prothrombin Time 20.6 sec (12.0-14.7)
[2021-11-04 06:50] LABS: Anion Gap 14 mmol/L (10-20); BUN (Urea Nitrogen) 28 mg/dL (8.9-20.6); Calc. Creatinine Clearance 86 mL/min (70-130); Calcium 8.6 mg/dL (7.8-10.44); Carbon Dioxide 22 mmol/L (22-29); Chloride 93 mmol/L (98-107); Glucose 131 mg/dL (70-105); Potassium 3.9 mmol/L (3.5-5.1); Sodium 125 mmol/L (136-145)
[2021-11-04 07:03] LABS: Bilirubin, Total 25.4 mg/dL (0.2-1.2)
[2021-11-04 07:06] LABS: ALT (SGPT) 71 U/L (8-55); AST (SGOT) 161 U/L (5-34); Albumin 3.3 g/dL (3.5-5.0); Alkaline Phosphatase 159 U/L (40-110); Anion Gap 15 mmol/L (10-20); BUN (Urea Nitrogen) 29 mg/dL (8.9-20.6); Calc. Creatinine Clearance 91 mL/min (70-130); Calcium 8.6 mg/dL (7.8-10.44); Carbon Dioxide 21 mmol/L (22-29); Chloride 92 mmol/L (98-107); Globulin 2.6 g/dL (2.4-3.5); Glucose 132 mg/dL (70-105); Potassium 3.9 mmol/L (3.5-5.1); Protein, Total 5.9 g/dL (6.0-8.3); Sodium 124 mmol/L (136-145)
[2021-11-04 08:12] LABS: Band 5 % (5-11); Lymphocytes 6 % (21-51); MDiff Complete? YES; Neutrophil 88 % (42-75); Platelet Morphology Comment Appears Adequate; RBC Morphology Normal
[2021-11-04] MEDS: Polyethylene Glycol 3350 17 GM Packet PO SCH (09:38)
[2021-11-04] MEDS: Simethicone Chewable 80 MG TAB PO SCH ×4 (09:38→21:53)
[2021-11-04] MEDS: Multivit, Therapeutic 1 TAB PO SCH (09:38)
[2021-11-04] MEDS: Rifaximin 550 MG TAB PO SCH ×2 (09:38→21:53)
[2021-11-04] MEDS: Senokot S 8.6-50 MG TAB PO SCH ×2 (09:38→21:54)
[2021-11-04] MEDS: Furosemide 40 MG TAB PO SCH ×2 (09:38→21:54)
[2021-11-04] MEDS: Aspirin 81 mg Enteric Coated Tablet PO SCH (09:38)
[2021-11-04] MEDS: Folic Acid 1 MG TAB PO SCH (09:38)
[2021-11-04] MEDS: Thiamine 100 MG TAB PO SCH (09:38)
[2021-11-04] MEDS: Spironolactone 25 MG TAB PO SCH (09:39)
[2021-11-04 17:25] LABS: Anion Gap 16 mmol/L (10-20); BUN (Urea Nitrogen) 27 mg/dL (8.9-20.6); Calc. Creatinine Clearance 92 mL/min (70-130); Calcium 8.4 mg/dL (7.8-10.44); Carbon Dioxide 20 mmol/L (22-29); Chloride 94 mmol/L (98-107); Glucose 130 mg/dL (70-105); Potassium 3.7 mmol/L (3.5-5.1); Sodium 126 mmol/L (136-145)
[2021-11-04] MEDS: Melatonin 3 MG TAB PO PRN (21:52)
[2021-11-04] MEDS: Phytonadione 5 MG TAB PO SCH (21:53)
[2021-11-04] MEDS: Sodium Chloride 256 MEQ in Dextrose 5% in Water 936 ML IV SCH (21:54)
[2021-11-04] MEDS: pyridOXINE 50 MG (B6) TAB PO SCH (21:54)
[2021-11-04] MEDS: Cyanocobalamin (Vitamin B-12) 1,000 MCG TAB PO SCH (21:54)
[2021-11-05 07:20] LABS: INR-International Normal Ratio 1.8; PTT 58.8 sec (22.9-36.1)
[2021-11-05 07:39] LABS: ALT (SGPT) 71 U/L (8-55); AST (SGOT) 155 U/L (5-34); Albumin 3.2 g/dL (3.5-5.0); Alkaline Phosphatase 162 U/L (40-110); Anion Gap 15 mmol/L (10-20); BUN (Urea Nitrogen) 28 mg/dL (8.9-20.6); Calc. Creatinine Clearance 89 mL/min (70-130); Calcium 8.4 mg/dL (7.8-10.44); Carbon Dioxide 20 mmol/L (22-29); Chloride 94 mmol/L (98-107); Globulin 2.7 g/dL (2.4-3.5); Glucose 131 mg/dL (70-105); Magnesium 1.8 mg/dL (1.6-2.6); Phosphorus 2.8 mg/dL (2.3-4.7); Potassium 3.4 mmol/L (3.5-5.1); Protein, Total 5.9 g/dL (6.0-8.3); Sodium 126 mmol/L (136-145)
[2021-11-05] MEDS ORDERED: Magnesium 2 GM/50 ML(in water) 2 GM in Premix Bag 1 BAG IVPB SCH (07:45)
[2021-11-05] MEDS ORDERED: Potassium Chloride 20 MEQ TAB PO SCH (07:45)
[2021-11-05 07:50] LABS: Bilirubin, Total 24.9 mg/dL (0.2-1.2)
[2021-11-05 08:14] LABS: Band 16 % (5-11); Hemoglobin 11.4 g/dL (14.0-18.0); Lymphocytes 6 % (21-51); MDiff Complete? YES; Mean Corpuscular HGB CONC 31.6 g/dL (32.0-36.0); Mean Corpuscular Hemoglobin 38.1 pg (27.0-31.0); Mean Platelet Volume 7.4 fL (7.4-10.4); Monocytes 3 % (0-10); Neutrophil 75 % (42-75); Platelet Count 293 thou/uL (130-400); RBC Distribution Width 15.3 % (11.5-14.5); White Blood Cell (WBC) Count 28.5 thou/uL (4.8-10.8)
[2021-11-05] MEDS: Polyethylene Glycol 3350 17 GM Packet PO SCH (08:55)
[2021-11-05] MEDS: Senokot S 8.6-50 MG TAB PO SCH ×2 (08:56→22:25)
[2021-11-05] MEDS: Spironolactone 25 MG TAB PO SCH (08:56)
[2021-11-05] MEDS: Simethicone Chewable 80 MG TAB PO SCH ×4 (08:56→22:25)
[2021-11-05] MEDS: Folic Acid 1 MG TAB PO SCH (08:56)
[2021-11-05] MEDS: Multivit, Therapeutic 1 TAB PO SCH (08:56)
[2021-11-05] MEDS: Thiamine 100 MG TAB PO SCH (08:56)
[2021-11-05] MEDS: Furosemide 40 MG TAB PO SCH ×2 (08:56→22:24)
[2021-11-05] MEDS: Rifaximin 550 MG TAB PO SCH ×2 (08:56→22:24)
[2021-11-05] MEDS: Aspirin 81 mg Enteric Coated Tablet PO SCH (08:56)
[2021-11-05] MEDS: Sodium Chloride 256 MEQ in Dextrose 5% in Water 936 ML IV SCH (19:45)
[2021-11-05] MEDS: Cyanocobalamin (Vitamin B-12) 1,000 MCG TAB PO SCH (22:24)
[2021-11-05] MEDS: Melatonin 3 MG TAB PO PRN (22:24)
[2021-11-05] MEDS: pyridOXINE 50 MG (B6) TAB PO SCH (22:24)
[2021-11-05] MEDS: Phytonadione 5 MG TAB PO SCH (22:25)
[2021-11-06] MEDS: Albumin 25% 25 GM/100 ML BOT IVPB SCH ×2 (05:28→12:44)
[2021-11-06 06:38] LABS: INR-International Normal Ratio 1.7; Prothrombin Time 20.4 sec (12.0-14.7)
[2021-11-06 06:39] LABS: PTT 57.9 sec (22.9-36.1)
[2021-11-06 06:57] LABS: ALT (SGPT) 73 U/L (8-55); AST (SGOT) 151 U/L (5-34); Albumin 3.5 g/dL (3.5-5.0); Alkaline Phosphatase 174 U/L (40-110); Anion Gap 16 mmol/L (10-20); BUN (Urea Nitrogen) 29 mg/dL (8.9-20.6); Bilirubin, Total 24.9 mg/dL (0.2-1.2); Calc. Creatinine Clearance 90 mL/min (70-130); Calcium 8.8 mg/dL (7.8-10.44); Carbon Dioxide 18 mmol/L (22-29); Chloride 97 mmol/L (98-107); Globulin 2.8 g/dL (2.4-3.5); Glucose 122 mg/dL (70-105); Protein, Total 6.3 g/dL (6.0-8.3); Sodium 127 mmol/L (136-145)
[2021-11-06 07:00] LABS: Hemoglobin 11.7 g/dL (14.0-18.0); Mean Corpuscular HGB CONC 32.6 g/dL (32.0-36.0); Mean Corpuscular Hemoglobin 39.7 pg (27.0-31.0); Mean Platelet Volume 7.5 fL (7.4-10.4); Platelet Count 323 thou/uL (130-400); RBC Distribution Width 15.3 % (11.5-14.5); Red Blood Cell (RBC) Count 2.95 mill/uL (4.70-6.10); White Blood Cell (WBC) Count 29.6 thou/uL (4.8-10.8)
[2021-11-06] MEDS ORDERED: Furosemide 100 MG/10 ML VIAL SLOW IVP SCH (08:15)
[2021-11-06] MEDS: Furosemide 40 MG TAB PO SCH ×2 (08:25→20:42)
[2021-11-06] MEDS: Thiamine 100 MG TAB PO SCH (08:25)
[2021-11-06] MEDS: Folic Acid 1 MG TAB PO SCH (08:25)
[2021-11-06] MEDS: Spironolactone 25 MG TAB PO SCH (08:25)
[2021-11-06] MEDS: Rifaximin 550 MG TAB PO SCH ×2 (08:25→20:42)
[2021-11-06] MEDS: Multivit, Therapeutic 1 TAB PO SCH (08:25)
[2021-11-06] MEDS: Aspirin 81 mg Enteric Coated Tablet PO SCH (08:25)
[2021-11-06] MEDS: Senokot S 8.6-50 MG TAB PO SCH ×2 (08:26→20:42)
[2021-11-06] MEDS: Polyethylene Glycol 3350 17 GM Packet PO SCH (08:26)
[2021-11-06] MEDS: Simethicone Chewable 80 MG TAB PO SCH ×4 (08:26→21:27)
[2021-11-06] MEDS ORDERED: Sodium Bicarbonate 2.5 MEQ/5 ML VIAL ONE (09:16)
[2021-11-06] MEDS ORDERED: Lidocaine 1% PF 5 ML VIAL ONE (09:16)
[2021-11-06 09:46] LABS: Band 29 % (5-11); Hypersemented Neutrophil SLIGHT; Lymphocytes 6 % (21-51); MDiff Complete? YES; Macrocytosis MARKED = >30 cells (100X) (0-5/hpf); Monocytes 9 % (0-10); Neutrophil 56 % (42-75); Platelet Morphology Comment Appears Adequate; Polychromasia SLIGHT = 2-3 cells (100X) (0-2/hpf); Target Cells SLIGHT = 2-5 cells (100X) (0-1/hpf)
[2021-11-06 10:45] LABS: RBC Count-Automated (BF) 143 /cu.mm; WBC/Nucleated-Auto (BF) 114 /cu.mm
[2021-11-06 10:46] LABS: BF Color Yellow; Body Fluid Source Ascites Body Fluid; Clarity Hazy (Clear); Tube # EDTA
[2021-11-06 12:27] LABS: BF Segmented Neutrophils 7 %; Cell Count Non Hematic 86 %; Lymphocytes 7 %
[2021-11-06] MEDS: Cyanocobalamin (Vitamin B-12) 1,000 MCG TAB PO SCH (20:42)
[2021-11-06] MEDS: Melatonin 3 MG TAB PO PRN (20:42)
[2021-11-06] MEDS: pyridOXINE 50 MG (B6) TAB PO SCH (20:42)
[2021-11-06] MEDS: Phytonadione 5 MG TAB PO SCH (20:45)
[2021-11-07 06:24] LABS: Hemoglobin 10.8 g/dL (14.0-18.0); Mean Corpuscular HGB CONC 32.8 g/dL (32.0-36.0); Mean Corpuscular Hemoglobin 39.5 pg (27.0-31.0); Mean Platelet Volume 7.4 fL (7.4-10.4); Platelet Count 253 thou/uL (130-400); RBC Distribution Width 15.1 % (11.5-14.5); Red Blood Cell (RBC) Count 2.74 mill/uL (4.70-6.10); White Blood Cell (WBC) Count 23.7 thou/uL (4.8-10.8)
[2021-11-07 06:38] LABS: Anion Gap 15 mmol/L (10-20); BUN (Urea Nitrogen) 30 mg/dL (8.9-20.6); Calc. Creatinine Clearance 92 mL/min (70-130); Calcium 8.5 mg/dL (7.8-10.44); Carbon Dioxide 19 mmol/L (22-29); Chloride 97 mmol/L (98-107); Glucose 112 mg/dL (70-105); Potassium 3.6 mmol/L (3.5-5.1); Sodium 127 mmol/L (136-145)
[2021-11-07 06:50] LABS: Band 18 % (5-11); Lymphocytes 5 % (21-51); MDiff Complete? YES; Macrocytosis MODERATE=16-30 cells (100X) (0-5/hpf); Monocytes 8 % (0-10); Neutrophil 69 % (42-75)
[2021-11-07] MEDS: Polyethylene Glycol 3350 17 GM Packet PO SCH (09:08)
[2021-11-07] MEDS: Spironolactone 25 MG TAB PO SCH (09:08)
[2021-11-07] MEDS: Simethicone Chewable 80 MG TAB PO SCH ×4 (09:08→21:02)
[2021-11-07] MEDS: Folic Acid 1 MG TAB PO SCH (09:08)
[2021-11-07] MEDS: Aspirin 81 mg Enteric Coated Tablet PO SCH (09:08)
[2021-11-07] MEDS: Thiamine 100 MG TAB PO SCH (09:08)
[2021-11-07] MEDS: Rifaximin 550 MG TAB PO SCH ×2 (09:08→20:58)
[2021-11-07] MEDS: Senokot S 8.6-50 MG TAB PO SCH ×2 (09:08→20:58)
[2021-11-07] MEDS: Multivit, Therapeutic 1 TAB PO SCH (09:08)
[2021-11-07] MEDS: Furosemide 40 MG TAB PO SCH ×2 (09:08→20:58)
[2021-11-07] MEDS: Cyanocobalamin (Vitamin B-12) 1,000 MCG TAB PO SCH (20:57)
[2021-11-07] MEDS: pyridOXINE 50 MG (B6) TAB PO SCH (20:58)
[2021-11-07] MEDS: Phytonadione 5 MG TAB PO SCH (20:58)
[2021-11-07] MEDS: Melatonin 3 MG TAB PO PRN (22:18)
[2021-11-08 06:47] LABS: Hemoglobin 10.8 g/dL (14.0-18.0); Mean Corpuscular HGB CONC 31.5 g/dL (32.0-36.0); Mean Corpuscular Hemoglobin 37.6 pg (27.0-31.0); Mean Platelet Volume 7.3 fL (7.4-10.4); Platelet Count 268 thou/uL (130-400); RBC Distribution Width 15.2 % (11.5-14.5); Red Blood Cell (RBC) Count 2.88 mill/uL (4.70-6.10); White Blood Cell (WBC) Count 30.1 thou/uL (4.8-10.8)
[2021-11-08 06:59] LABS: INR-International Normal Ratio 1.8; Prothrombin Time 21.5 sec (12.0-14.7)
[2021-11-08 07:00] LABS: PTT 59.3 sec (22.9-36.1)
[2021-11-08 07:10] LABS: ALT (SGPT) 70 U/L (8-55); AST (SGOT) 149 U/L (5-34); Alkaline Phosphatase 170 U/L (40-110); Anion Gap 13 mmol/L (10-20); BUN (Urea Nitrogen) 32 mg/dL (8.9-20.6); Bilirubin, Total 23.4 mg/dL (0.2-1.2); Calc. Creatinine Clearance 81 mL/min (70-130); Calcium 8.5 mg/dL (7.8-10.44); Carbon Dioxide 19 mmol/L (22-29); Chloride 97 mmol/L (98-107); Globulin 2.6 g/dL (2.4-3.5); Glucose 106 mg/dL (70-105); Potassium 3.7 mmol/L (3.5-5.1); Protein, Total 5.6 g/dL (6.0-8.3); Sodium 125 mmol/L (136-145)
[2021-11-08 07:41] LABS: Band 29 % (5-11); Lymphocytes 9 % (21-51); MDiff Complete? YES; Macrocytosis MODERATE=16-30 cells (100X) (0-5/hpf); Monocytes 7 % (0-10); Neutrophil 55 % (42-75); Platelet Morphology Comment Appears Adequate; Polychromasia SLIGHT = 2-3 cells (100X) (0-2/hpf)
[2021-11-08] MEDS ORDERED: Albumin 25% 25 GM/100 ML BOT IVPB SCH (08:15)
[2021-11-08] MEDS: Aspirin 81 mg Enteric Coated Tablet PO SCH (08:57)
[2021-11-08] MEDS: Multivit, Therapeutic 1 TAB PO SCH (08:57)
[2021-11-08] MEDS: Simethicone Chewable 80 MG TAB PO SCH ×4 (08:57→22:25)
[2021-11-08] MEDS: Spironolactone 25 MG TAB PO SCH (08:58)
[2021-11-08] MEDS: Senokot S 8.6-50 MG TAB PO SCH ×2 (08:58→22:05)
[2021-11-08] MEDS: Furosemide 40 MG TAB PO SCH ×2 (08:58→22:05)
[2021-11-08] MEDS: Rifaximin 550 MG TAB PO SCH ×2 (08:58→22:16)
[2021-11-08] MEDS: Thiamine 100 MG TAB PO SCH (08:58)
[2021-11-08] MEDS: Folic Acid 1 MG TAB PO SCH (08:58)
[2021-11-08] MEDS: Polyethylene Glycol 3350 17 GM Packet PO SCH (08:59)
[2021-11-08] MEDS: Albumin 25% 25 GM/100 ML BOT IVPB SCH ×3 (10:02→22:07)
[2021-11-08 13:13] VITALS: BMI 29.6
[2021-11-08] MEDS: Sodium Chloride 256 MEQ in Dextrose 5% in Water 936 ML IV SCH (14:01)
[2021-11-08] MEDS: pyridOXINE 50 MG (B6) TAB PO SCH (22:06)
[2021-11-08] MEDS: Cyanocobalamin (Vitamin B-12) 1,000 MCG TAB PO SCH (22:06)
[2021-11-09] MEDS: Albumin 25% 25 GM/100 ML BOT IVPB SCH ×3 (04:48→16:58)
[2021-11-09 06:50] LABS: ALT (SGPT) 63 U/L (8-55); AST (SGOT) 145 U/L (5-34); Albumin 3.7 g/dL (3.5-5.0); Alkaline Phosphatase 137 U/L (40-110); Anion Gap 16 mmol/L (10-20); BUN (Urea Nitrogen) 33 mg/dL (8.9-20.6); Bilirubin, Total 21.6 mg/dL (0.2-1.2); Calc. Creatinine Clearance 79 mL/min (70-130); Calcium 8.7 mg/dL (7.8-10.44); Carbon Dioxide 16 mmol/L (22-29); Chloride 99 mmol/L (98-107); Globulin 2.2 g/dL (2.4-3.5); Glucose 133 mg/dL (70-105); Potassium 3.4 mmol/L (3.5-5.1); Protein, Total 5.9 g/dL (6.0-8.3); Sodium 128 mmol/L (136-145)
[2021-11-09] MEDS ORDERED: Potassium Chloride 20 MEQ TAB PO SCH (08:00)
[2021-11-09] MEDS: Furosemide 40 MG TAB PO SCH (08:41)
[2021-11-09] MEDS: Aspirin 81 mg Enteric Coated Tablet PO SCH (08:41)
[2021-11-09] MEDS: Polyethylene Glycol 3350 17 GM Packet PO SCH (08:41)
[2021-11-09] MEDS: Simethicone Chewable 80 MG TAB PO SCH ×3 (08:41→18:00)
[2021-11-09] MEDS: Spironolactone 25 MG TAB PO SCH (08:41)
[2021-11-09] MEDS: Folic Acid 1 MG TAB PO SCH (08:42)
[2021-11-09] MEDS: Thiamine 100 MG TAB PO SCH (08:42)
[2021-11-09] MEDS: Senokot S 8.6-50 MG TAB PO SCH (08:42)
[2021-11-09] MEDS: Multivit, Therapeutic 1 TAB PO SCH (08:42)
[2021-11-09] MEDS: Rifaximin 550 MG TAB PO SCH (08:42)
[2021-11-09] MEDS ORDERED: SODIUM CHLORIDE 3% IVPB SCH (11:30)
[2021-11-09] MEDS ORDERED: WATER IVPB SCH (11:30)
[2021-11-09] MEDS ORDERED: DEXTROSE 10% IVPB SCH (11:30)
[2021-11-09 11:49] LABS: SARS-CoV-2 PCR by NAA Not Detected (NotDetected)
[2021-11-09] MEDS ORDERED: Lorazepam 0.5 MG TAB PO SCH (16:30)
[2021-11-09 18:20] LABS: Sodium 130 mmol/L (136-145)
[2021-11-09 20:07] VITALS: BP 125/65; TEMP 98.6
== END 2021-11-09 20:06 | disposition short-term general hospital (02) | DRG 432 ==
LOC: ERS 11:25 → 2NO 13:25 → T4-A 10-21 15:41
PROVIDERS: ADMIT Internal Medicine; ATTEND Internal Medicine
PROC: 0W9G3ZZ Drainage of Peritoneal Cavity, Percutaneous Approach (ICD-10-PCS; principal; 2021-10-20)
PROC: 3E0G76Z Introduction of Nutritional Substance into Upper GI, Via Natural or Artificial Opening (ICD-10-PCS; 2021-10-21)
PROC: 0W9G3ZZ Drainage of Peritoneal Cavity, Percutaneous Approach (ICD-10-PCS; 2021-10-24)
PROC: 0W9G3ZZ Drainage of Peritoneal Cavity, Percutaneous Approach (ICD-10-PCS; 2021-10-31)
PROC: 0W9G3ZZ Drainage of Peritoneal Cavity, Percutaneous Approach (ICD-10-PCS; 2021-11-06)
DX: K70.11 Alcoholic hepatitis with ascites (principal); K76.7 Hepatorenal syndrome; E87.1 Hypo-osmolality and hyponatremia; D68.4 Acquired coagulation factor deficiency; E44.0 Moderate protein-calorie malnutrition; N17.9 Acute kidney failure, unspecified; Z20.822 Contact with and (suspected) exposure to COVID-19; K70.31 Alcoholic cirrhosis of liver with ascites; F32.A Depression, unspecified; I10 Essential (primary) hypertension; F17.290 Nicotine dependence, other tobacco product, uncomplicated; R74.01 Elevation of levels of liver transaminase levels; F41.9 Anxiety disorder, unspecified; D53.9 Nutritional anemia, unspecified; E87.6 Hypokalemia; K70.0 Alcoholic fatty liver; D52.9 Folate deficiency anemia, unspecified; D72.829 Elevated white blood cell count, unspecified; F10.20 Alcohol dependence, uncomplicated; K70.40 Alcoholic hepatic failure without coma; E80.6 Other disorders of bilirubin metabolism; Y90.0 Blood alcohol level of less than 20 mg/100 ml; E83.42 Hypomagnesemia; Z79.899 Other long term (current) drug therapy; Z88.0 Allergy status to penicillin; Z88.2 Allergy status to sulfonamides; Z79.82 Long term (current) use of aspirin; Z86.73 Personal history of transient ischemic attack (TIA), and cerebral infarction without residual deficits; Z98.1 Arthrodesis status; Z83.2 Family history of diseases of the blood and blood-forming organs and certain disorders involving the immune mechanism; Z82.49 Family history of ischemic heart disease and other diseases of the circulatory system; Z71.41 Alcohol abuse counseling and surveillance of alcoholic; Z87.74 Personal history of (corrected) congenital malformations of heart and circulatory system; Z68.30 Body mass index [BMI] 30.0-30.9, adult
CPT/HCPCS: 36415; 36416; 49083; 70450; 71045; 74181; 76700; 76705; 80048; 80053; 80074; 80076; 80202; 80307; 81001; 82042; 82140; 82247; 82390; 82607; 82746; 83516; 83690; 83735; 83880; 83930; 83935; 84100; 84145; 84157; 84443; 84484; 85025; 85060; 85610; 85730; 86015; 86038; 86225; 86235; 86850; 86900; 86901; 87040; 87070; 87081; 87086; 87205; 88112; 89051; 93005; 93306; 94760; 96365; 96366; 96368; 96374; C9113; J0696; J1650; J1940; J3370; J3411; J3475; J3480; J3490; J7042; J7050; J7060; J7070; J7131; P9047; U0003; U0005

== ENCOUNTER 2022-05-29 13:22 | Emergency (ER) | payer BC ==
[2022-05-29 13:56] LABS: #Basophils 0.1 thou/uL (0.0-0.2); #Lymphocytes 0.7 thou/uL (1.20-3.40); #Monocytes 0.4 thou/uL (0.11-0.59); %Basophils 0.6 % (0.0-1.0); %Eosinophils 0.5 % (0.0-10.0); %Lymphocytes 7.8 % (21.0-51.0); %Monocytes 4.7 % (0.0-10.0); %Neutrophils 86.5 % (42.0-75.0); Hemoglobin 13.5 g/dL (14.0-18.0); Mean Corpuscular HGB CONC 31.6 g/dL (32.0-36.0); Mean Corpuscular Volume 91.7 fL (78.0-98.0); Mean Platelet Volume 7.5 fL (7.4-10.4); Platelet Count 233 thou/uL (130-400); RBC Distribution Width 17.1 % (11.5-14.5); Red Blood Cell (RBC) Count 4.65 mill/uL (4.70-6.10); White Blood Cell (WBC) Count 9.2 thou/uL (4.8-10.8)
[2022-05-29 14:12] LABS: ALT (SGPT) 11 U/L (8-55); AST (SGOT) 15 U/L (5-34); Albumin 4.8 g/dL (3.5-5.0); Alkaline Phosphatase 70 U/L (40-110); Anion Gap 13 mmol/L (10-20); BUN (Urea Nitrogen) 28 mg/dL (8.9-20.6); Bilirubin, Total 0.4 mg/dL (0.2-1.2); Calc. Creatinine Clearance 0 mL/min (70-130); Calcium 9.8 mg/dL (7.8-10.44); Carbon Dioxide 22 mmol/L (22-29); Chloride 106 mmol/L (98-107); Estimated GFR 30; Globulin 3.3 g/dL (2.4-3.5); Glucose 108 mg/dL (70-105); Potassium 5.4 mmol/L (3.5-5.1); Protein, Total 8.1 g/dL (6.0-8.3); Sodium 136 mmol/L (136-145)
[2022-05-29] MEDS ORDERED: LOKELMA 10 GM PACKET PO SCH (15:30)
[2022-05-29] MEDS ORDERED: Lidocaine 1% PF 5 ML VIAL ONE (15:59)
== END 2022-05-29 17:03 | disposition home or self-care (01) ==
LOC: ERS 13:22
DX: E87.5 Hyperkalemia (principal); I12.0 Hypertensive chronic kidney disease with stage 5 chronic kidney disease or end stage renal disease; N18.6 End stage renal disease; F17.220 Nicotine dependence, chewing tobacco, uncomplicated; Z86.73 Personal history of transient ischemic attack (TIA), and cerebral infarction without residual deficits; Z79.899 Other long term (current) drug therapy
CPT/HCPCS: 80053; 83605; 84484; 85025; 93005